=== PATIENT | female | born 1955 | race Caucasian/White ===

== ENCOUNTER 2020-11-25 14:03 | Outpatient (CLI) | payer OTHER, SELFPAY | END 2020-11-25 14:04 | disposition home or self-care (01) | LOC: ANHCOVIDVC 14:03 | PROVIDERS: PCP Orthopaedic Surgery | DX: Z23 Encounter for immunization (principal) | CPT/HCPCS: 0001A; 91300 ==

== ENCOUNTER 2020-12-16 14:06 | Outpatient (CLI) | payer OTHER, SELFPAY | END 2020-12-16 14:07 | disposition home or self-care (01) | LOC: ANHCOVIDVC 14:07 | PROVIDERS: PCP Orthopaedic Surgery | DX: Z23 Encounter for immunization (principal) | CPT/HCPCS: 0002A; 91300 ==

== ENCOUNTER 2024-01-31 14:45 | Outpatient (RCR) | payer MEDICARE, OTHER, SELFPAY ==
--- NOTE | 2024-01-07 14:33 | OPREHPOC ---
Outpatient Therapy Plan of Care This is a Multidisciplinary Plan of Care that may contain components documented by all disciplines (PT, OT, and ST.) PT Problem 1 PT Problem #1 Knowledge Deficit PT Goal 1 Goal *indep with HEP--land and aquatic Target Visit 6 PT Problem 2 PT Problem #2 Pain PT Goal 1 Goal 1* pt report pain R knee at worst of 6/10 2* self assessment with LE functional scale rating of 50% limitation in activity Target Visit 6 PT Problem 3 PT Problem #3 Impaired Strength PT Goal 1 Goal increase srength of R hip/knee to improve mobility and support to knee joint: 1* pt perform 20 reps of mat strengthening exercises 2* 2 minute walking test distance of 450' Target Visit 6
--- NOTE | 2024-01-07 14:33 | PTOPEVAL1 ---
Assessment and note entered by Porsche Hernandez, PT Evaluation Information Assessment Status Evaluation Diagnosis R knee pain Onset Jun 2023 Subjective Information gradual increase in pain, no trauma or injury to R LE; also have pain in L knee; to have xrays and more testing on knees next week; No PT in the past for legs; have never done aquatic therapy; no falls in the past 6 months, do have a history of falls; do not use assistive device; is trying to lose some weight, have had a gradual increase in her weight over the past 10 years and extra weight bothering her body more. Activity: indep with home and self care tasks, have to pace herself--do some then rest; one entry step at home; GOAL: figure out what is wrong with her knees; get stronger and see if that helps her knees. Reported Pain Level Pain Score Self Report Additional Pain Score Comments pain range in the past week: 7-8/10; sore and hurts over lateral and distal patellar areas; back of knee throbs constantly; also have pain in L knee, both hips and back; increase pain: work in yard, bending down decrease pain: sit/rest, ice problems getting comfortable with sleeping, usually sleep on her side--educated on use of pillow between knees and ankles for knee alignment reported walking tolerance 5-10 minutes Assessment PT Clinical Summary Evy has the diagnosis of R knee pain. She reports chronic issues with pain all over her body. And has not had any recent falls or trauma to LE's. She lives alone and assists with care of her young grandchildren. She does not do any fitness or exercises, stated gotten weaker from not doing very much. With the evaluation: she has good flexibility of her hips and knees, weakness of hips and knees; lateral placement and tracking of her patella; 2 minute walking test distance of 385' with increase pain in L hip;
--- NOTE | 2024-01-14 07:12 | PCPTNOTE ---
Patient called to cancell, gave no reason.
--- NOTE | 2024-01-24 15:22 | PCPTNOTE ---
Pt LESLIE beltrana visit today. LM on her phone of next visit date and time.
--- NOTE | 2024-01-28 14:27 | PCPTNOTE ---
No call No show, reason unknown. AKArslan
--- NOTE | 2024-01-31 15:19 | PCPTNOTE ---
Pt no showed for the third visit today. Left message infoming pt she will be discharged after today last no show.
--- NOTE | 2024-02-02 08:37 | PTOPDC ---
Assessment and note entered by Porsche Hernandez, PT Discharge Report Assessment Status Discharge - Pt Not Present Diagnosis R knee pain Onset Jun 2023 Subjective Information pt was not seen this date Assessment PT Clinical Summary Evy had the PT evaluation on January 06. She called /canceled 1 and did not show for 3 appointments. Discharge PT. The goals were not addressed. Plan of Care PT Services Indicated No
== END 2024-02-02 10:47 | disposition home or self-care (01) ==
LOC: ANHPT 14:45
PROVIDERS: PCP Orthopaedic Surgery; Visit Provider Family Medicine
DX: M25.561 Pain in right knee (principal)
CPT/HCPCS: 97110; 97161; 97530

== ENCOUNTER 2024-12-14 10:00 | Outpatient (CLI) | payer MEDICARE, OTHER, SELFPAY ==
--- OUTSIDE RECORDS SUMMARY | 2024-12-14 10:48 | XMS_ITS | Referral Summary ---
Author Organization [facility] Address [address] [place] [id number] Care Team Providers Care Oil Rig Roughneck Name Role Phone Silvio Kovacs MD Primary Care Provider [phone] Encounters Date Type Department Care Team Description 09/21/2024 6:31 PM [employer] - 09/21/2024 11:59 PM [employer] Hospital Encounter [address] [address] Exposure to COVID-19 virus Discharge Disposition: Discharge to home or self care 09/21/2024 6:15 PM [employer] Office Visit [facility] at [address] [address] Petra Saldana NP Non-recurrent acute serous otitis media, unspecified laterality (Primary Dx); Exposure to COVID-19 virus from Last 3 Months Allergies No known active allergies Medications fluticasone propionate (FLONASE) 50 mcg/actuation nasal spray Administer 1 spray into each nostril as needed for allergies 12/22/19 20 Active albuterol HFA (PROVENTIL HFA,VENTOLIN HFA,PROAIR HFA) 90 mcg/actuation inhalerIndications :Acute Asthma Attack Inhale 1 puff 3 (three) times a day 09/30/19 19 Active cyanocobalamin (Vitamin B-12) 100 mcg tabletIndications: Prevention of Vitamin B12 Deficiency Take 1 tablet (100 mcg total) by mouth every morning Crush medications for 1 week after surgery 12/31/19 Active Additional Information Patient not taking.Reported on 09/21/2024 hydrOXYzine (ATARAX) 25 mg tabletIndications: anxiety Take 1 tablet (25 mg total) by mouth every 4 (four) hours as needed for itching Crush medications for 1 week after surgery 12/31/19 Active omeprazole (PriLOSEC) 20 mg capsuleIndications :Treatment of Non-Bleeding Gastric Disorder Take 1 capsule (20 mg total) by mouth every morning For 1 week after surgery open capsule sprinkle in applesauce take immediately after 1 week take pill whole 12/31/19 Active Additional Information Patient not taking.Reported on 09/21/2024 pravastatin (PRAVACHOL) 20 mg tabletIndications: hyperlipidemia Take 1 tablet (20 mg total) by mouth nightly Crush medications for 1 week after surgery 12/31/19 Active sertraline (ZOLOFT) 50 mg tabletIndications: depression Take 2 tablets (100 mg total) by mouth every morning Crush medications for 1 week after surgery 12/31/19 Active coenzyme Q10 10 mg capsuleIndications :supplement Take 1 capsule (10 mg total) by mouth nightly Restart in 1 week after surgery 01/07/20 Active Additional Information Patient not taking.Reported on 09/21/2024 acetaminophen (TYLENOL) 32 mg/mLIndications:P ain Take 20.3 mL (650 mg total) by mouth every 6 (six) hours as needed for pain 473 mL 01/01/20 Active polyethylene glycol (MIRALAX) 17 gram packetIndications: constipation Take 1 packet (17 g total) by mouth daily 10 packet 01/02/20 Active Additional Information Patient not taking.Reported on 09/21/2024 ondansetron ODT (ZOFRAN-ODT) 4 mg disintegrating tabletIndications: Prevention of Post-Operative Nausea and Vomiting Take 1 tablet (4 mg total) by mouth every 8 (eight) hours as needed for nausea or vomiting 20 tablet 2 01/01/20 Active Additional Information Patient not taking.Reported on 09/21/2024 lisinopril-hydroCH LOROthiazide (ZESTORETIC) 20-12.5 mg per tabletIndications: hypertension Take 1 tablet by mouth every morning Crush medications for 1 week after surgery 01/01/20 Active oxyCODONE (ROXICODONE) solution 5 mg/5 mLIndications:Pain Take 5 mL (5 mg total) by mouth every 4 (four) hours as needed for pain 70 mL 01/01/20 Active Additional Information Patient not taking.Reported on 09/21/2024 Active Problems Problem Noted Date Diagnosed Date 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 Never 12/02/2021 Average Number of Drinks Not on file 022 Q3: How often do you have si x or more drinks on one occasion? Never 12/02/2021 Comments No Sex and Gender Information Value Date Recorded Sex Assigned at Not on file Legal Sex Female 8:51 PM [employer] Gender Identity Female 12/01/2021 1:16 PM CDT Sexual Orientation Not on file Last Filed Vital Signs Vital Sign Reading Time Taken Comments Blood Pressure 124/70 09/21/2024 5:57 PM [employer] Pulse 90 09/21/2024 5:57 PM [employer] Temperature 36.6 C (97.9 F) 09/21/2024 5:57 PM [employer] Respiratory Rate 24 09/21/2024 5:57 PM [employer] Oxygen Saturation 98% 09/21/2024 5:57 PM [employer] Inhaled Oxygen Concentration - - Weight 75.3 kg (166 lb) 09/21/2024 5:57 PM [employer] Height 160 cm (5' 3 ) 01/23/2022 2:26 PM CDT Body Mass Index 29.41 01/23/2022 2:26 PM CDT Plan of Treatment Not on file Medical Devices Implanted Type Area Stemming Machine Operator Device Identifier Shelf Expiration Date Model / Serial / Lot [employer]A 10x7cm Reinforcement Tissue Mesh Surgical Synthetic [id number] - [id number] - [id number] Implanted:Qty: 1 on 12/29/2021 by Laurent Barboza MD at [facility] Mesh N/A: Abdomen [employer] [id number] 09/15/2024 [id number] / [id number] / Procedures Procedure Name Priority Date/Time Associated Diagnosis Comments INFLUENZA A/B, RSV, AND COVID-19 PCR Routine 09/21/2024 6:31 PM [employer] Exposure to COVID-19 virus POC INFLUENZA A/B, COVID-19 ANTIGEN Routine 09/21/2024 6:09 PM [employer] Exposure to COVID-19 virus from Last 3 Months Results * Influenza A/B, RSV, and COVID-19 PCR Nasopharyngeal (09/21/2024 6:31 PM PA[employer]) Pathologist [facility] COVID-19 RNA Negative Negative Influenza A RNA Negative Negative [facility] Influenza B RNA Negative Negative [facility] RSV RNA Negative Negative [facility] Comment: Interpretive data: Testing performed by [facility]. This test is performed using the [employer] Xpert Xpress CoV-2/Flu/RSV plus assay. This is a multiplex, real-time reverse transcriptase PCR assay intended for the qualitative detection of nucleic acid from SARS-CoV-2, influenza A, influenza B, and respiratory syncytial virus. This assay has been cleared by the [place] Food and Drug administration. The performance characteristics have been verified by the [facility]. Results must be considered in the clinical context, and a negative result does not rule out infection. Interpretive Data last revised 2023 Nasopharyngeal 09/21/2024 6: 31 PM [employer] 09/21/2024 10:15 PM [employer] Narrative [facility] - 09/21/2024 11:23 PM [employer] Is the Patient experiencing symptoms consistent with COVID?->Yes Reason for testing?->Symptomatic Is the patient experiencing any symptoms consistent with COVID (eg. Fever, cough, shortness of breath)?->Yes Petra Saldana NP LAB MICROBIOLOGY - GENERAL ORDERABLES Final Result [facility] [address] Department [place] [address] * POC Influenza A/B, COVID-19 antigen (09/21/2024 6:09 PM [employer]) Influenza A Ag, POC Negative Negative [facility] Influenza B Ag, POC Negative Negative [facility] COVID-19 Ag POC Presumptive Negative Presumptive Negative, Invalid [facility] Nasopharyngeal 09/21/2024 6: 09 PM [employer] Petra Saldana NP POINT OF CARE TEST ORDERAB LES Final Result [facility] [address] [place] [address], [facility] from Last 3 Months Insurance MEDICARE [facility] [place] [address] MEDICARE [employer] MEDICARE [employer] Advance Directives For more information, please contact: [phone] * Full Code (Latest Code Status on File) Date Activated Date Inactivated Comments 12/29/2021 2:05 PM 12/31/2021 9:45 PM Care Teams Oil [employer] Roughneck Relationship Specialty Start Date End Date Silvio Kovacs MD [address] [place] [address] PCP - General Software Developer Consultant 09/21/24
--- OUTSIDE RECORDS SUMMARY | 2024-12-14 10:48 | XMS_ITS | Clinical Summary ---
Author Organization [facility] Address [address] [place] [address] Care Team Providers Care Teacher Of The Deaf Name Role Phone Silvio Kovacs MD Primary Care Provider [phone] Allergies No known active allergies Medications fluticasone [...] medications for 1 week after surgery 12/31/19 22 Active Additional Information Patient not taking.Reported on 09/21/2024 hydrOXYzine (ATARAX) 25 mg tabletIndications: anxiety Take 1 tablet (25 mg total) by mouth every 4 (four) hours as needed for itching Crush medications for 1 week after surgery 12/31/19 22 Active omeprazole (PriLOSEC) 20 mg capsuleIndications :Treatment of Non-Bleeding Gastric Disorder Take 1 capsule (20 mg total) by mouth every morning For 1 week after surgery open capsule sprinkle in applesauce take immediately after 1 week take pill whole 12/31/19 22 Active Additional Information Patient not taking.Reported on [...] (10/24/2021): Added automatically from request for surgery [id number] Acute bronchitis 10/13/2021 Essential hypertension 01/18/2017 Mixed anxiety and depressive disorder 08/15/2016 Encounters Date Type Department Care Team Description 09/21/2024 6:31 PM EEG TECH - 09/21/2024 11:59 PM EEG TECH Hospital Encounter [address] [address] Exposure to COVID-19 virus Discharge Disposition: Discharge to home or self care 09/21/2024 6:15 PM EEG TECH Office Visit [facility] Medical [facility] at [address] [address] Petra Saldana NP Non-recurrent acute serous otitis media, unspecified laterality (Primary Dx); Exposure to COVID-19 virus from Last 3 Months Surgical History Surgery Date Site/Laterality Comments SECTION HYSTERECTOMY WRIST FRACTURE SURGERY Medical History Medical History Date Comments Hiatal hernia GERD (gastroesophageal reflux disease) HTN (hypertension) Anxiety Depression High cholesterol Social History Tobacco Use Types Packs/Day Years [...] on file Legal Sex Female 8:51 PM EEG TECH Gender Identity Female 12/01/2021 1:16 PM CDT Sexual Orientation Not on file Obstetrics History Last Filed Vital Signs Vital Sign Reading Time Taken Comments Blood Pressure 124/70 09/21/2024 5:57 PM EEG TECH Pulse 90 09/21/2024 5:57 PM EEG TECH Temperature 36.6 C (97.9 F) 09/21/2024 5:57 PM EEG TECH Respiratory Rate 24 09/21/2024 5:57 PM EEG TECH Oxygen Saturation 98% 09/21/2024 5:57 PM EEG TECH Inhaled Oxygen Concentration - - Weight 75.3 kg (166 lb) 09/21/2024 5:57 PM EEG TECH Height 160 cm (5' 3 ) 01/23/2022 2:26 PM CDT Body Mass Index 29.41 01/23/2022 2:26 PM CDT Plan of Treatment Health Maintenance Due Date Last Done Comments Colon Cancer Screening-Colonoscopy 1955 Depression Screening 1955 Hepatitis C Screening 1956 Hepatitis B Screening 1974 Zoster Vaccine (1 of 2) 2006 Pneumococcal vaccine 65+ (2 of 2 - PCV) 06/06/2016 06/06/2015 Well Visit 65+ 2021 Fall Risk Assessment 12/31/2022 12/31/2021 Breast Cancer Screening-Mammogram 08/05/2023 08/05/2022, 08/05/2022, 06/17/2018 DTaP/Tdap/Td Vaccine (2 - Td or Tdap) 12/23/2023 12/22/2013 Covid-19 Vaccine (4 - 2023-2 5 season) 2024 07/08/2021, 12/16/2020, 11/25/2020 Influenza Vaccine (#1) 2024 , 05/03/2020, 09/12/2019, Additional history exists Osteoporosis Screening-Bone Density Scan 08/05/2024 08/05/2022 Medical Devices Implanted Type Area Composing Room Machinist Device Identifier Shelf Expiration Date Model / Serial / Lot [employer] Bio-A 10x7cm Reinforcement Tissue Mesh Surgical Synthetic [id number] - [id number] - [id number] Implanted:Qty: 1 on 12/29/2021 by Laurent Barboza MD at [facility] Mesh N/A: Abdomen [employer] [id number] 09/15/2024 [id number] / [id number] / Procedures Procedure Name Priority Date/Time Associated Diagnosis Comments INFLUENZA A/B, RSV, AND COVID-19 PCR Routine 09/21/2024 6:31 PM EEG TECH Exposure to COVID-19 virus POC INFLUENZA A/B, COVID-19 ANTIGEN Routine 09/21/2024 6:09 PM EEG TECH Exposure to COVID-19 virus from Last 3 Months Results * Influenza A/B, RSV, and COVID-19 PCR Nasopharyngeal (09/21/2024 6:31 PM EEG TECH) COVID-19 RNA Negative Negative [facility] Influenza A RNA Negative Negative [facility] Influenza B RNA Negative Negative [facility] RSV RNA Negative Negative [facility] Comment: Interpretive data: Testing performed by [facility]. This test is performed using the [employer] Xpert Xpress CoV-2/Flu/RSV plus assay. This is a multiplex, real-time reverse transcriptase PCR assay intended for the qualitative detection of nucleic acid from SARS-CoV-2, influenza A, influenza B, and respiratory syncytial virus. This assay has been cleared by the [place] Food and Drug administration. The performance characteristics have been verified by the [facility]. Results must be considered in the clinical context, and a negative result does not rule out infection. Interpretive Data last revised 2023 Nasopharyngeal 09/21/2024 6: 31 PM EEG TECH 09/21/2024 10:15 PM EEG TECH Narrative [facility] - 09/21/2024 11:23 PM EEG TECH Is the Patient experiencing symptoms consistent with COVID?->Yes Reason for testing?->Symptomatic Is the patient experiencing any symptoms consistent with COVID (eg. Fever, cough, shortness of breath)?->Yes Petra Saldana NP LAB MICROBIOLOGY - GENERAL ORDERABLES Final Result Performing Organization Address [facility] Co de Phone Number [facility] [address] Department [place] [address] [facility] * POC Influenza A/B, COVID-19 antigen (09/21/2024 6:09 PM EEG TECH) Influenza A Ag, POC Negative Negative [facility] Influenza B Ag, POC Negative Negative [facility] COVID-19 Ag POC Presumptive Negative Presumptive Negative, Invalid [facility] Nasopharyngeal 09/21/2024 6: 09 PM EEG TECH Petra Saldana PHARMACY DIRECTOR POINT OF CARE TEST ORDERAB LES Final Result Performing Organization Address [facility] Co de Phone Number [facility] [address] [place] [address], [facility] from Last 3 Months Insurance [place] [address] [place] [address] MEDICARE [facility] [address] Advance Directives For more information, please contact: [phone] * Full Code (Latest Code Status on File) Date Activated Date Inactivated Comments 12/29/2021 2:05 PM 12/31/2021 9:45 PM Care Teams Teacher Of The Deaf Relationship Specialty Start Date End Date Silvio Kovacs MD [address] [place] [address] PCP - General Wrecking Car Driver 09/21/24
--- OUTSIDE RECORDS SUMMARY | 2024-12-14 10:49 | XMS_ITS | Clinical Summary ---
Author Organization [facility] Address [address] [place] [address] Care Team Providers Care Certified Marine Mechanic Name Role Phone Genaro Theodore Primary Care Provider [phone] Allergies No known active allergies Medications hydrOXYzine 25 MG capsule Take 25 mg by mouth 4 (four) times daily as needed. Active lisinopril-hydro CHLOROthiazide 20-25 MG tablet Take 1 tablet by mouth daily. Active sertraline 50 MG tablet Take 50 mg by mouth daily. Active omeprazole 20 MG capsule Take 20 mg by mouth daily. Active sucralfate 1 GM/10ML suspension Take 1 g by mouth 4 (four) times daily. Active Active Problems No known active problems Social History Tobacco Use Types Packs/Day Years Used Date Smoking Tobacco: Every Day Electronic Cigarettes Smokeless Tobacco: Never Comments: 0.5 mg tank Q2 day s Alcohol Use Standard Drinks/Week Comments Never 0 (1 standard drink = 0.6 oz pur e alcohol) AUDIT-C Answer Date Recorded Q1: How often do you have a drink containing alc ohol? Never 09/13/2020 Average Number of Drinks Not on file 021 Frequency of Binge Drinking Not on file 08/17 Comments No Sex and Gender Information Value Date Recorded Sex Assigned at Female 09/12/2024 3:11 PM ANIMATION ARTIST Legal Sex Female 8:25 PM CDT Gender Identity Not on file Sexual Orientation Not on file Last Filed Vital Signs Vital Sign Reading Time Taken Comments Blood Pressure 138/70 09/16/2020 5:30 PM ANIMATION ARTIST Pulse 62 09/16/2020 5:30 PM ANIMATION ARTIST Temperature 36 C (96.8 F) 09/16/2020 4:40 PM ANIMATION ARTIST Respiratory Rate 15 09/16/2020 5:30 PM ANIMATION ARTIST Oxygen Saturation 99% 09/16/2020 5:30 PM ANIMATION ARTIST Inhaled Oxygen Concentration - - Weight 76.7 kg (169 lb) 09/11/2020 10:06 AM ANIMATION ARTIST Height 162.6 cm (5' 4 ) 09/11/2020 10:06 AM ANIMATION ARTIST Body Mass Index 29.01 09/11/2020 10:06 AM ANIMATION ARTIST Plan of Treatment Health Maintenance Due Date Last Done Comments Hepatitis C 1974 Zoster Vaccines (1 of 2) 2006 Annual Medicare Wellness Visit 2021 DTaP, Tdap and Td Vaccines ( 2 - Td or Tdap) 12/23/2023 12/22/2013 COVID-19 Vaccine (4 - 2023-2 5 season) 2024 07/08/2021, 12/16/2020, 11/25/2020 Mammogram Screening 08/05/2024 08/05/2022, 06/17/2018 PHQ-2 (Physician [place]) 08/16/2024 Colorectal Cancer Screening Colonoscopy (10 Years) 09/16/2030 09/16/2020, 09/16/2020 RSV Immunization or 60+ Years (1 - 1-dose 75+ series) 2031 Pneumococcal Vaccine: 50+ Years Completed 06/08/2022, 06/06/2015 Dexa Scan (General) Completed 08/05/2022 Meningococcal B Vaccine Aged Out No l onger eligible based on patient's age to complete this topic Meningococcal Vaccine Aged Out No moisés richard eligible based on patient's age to complete this topic RSV Immunizations Under 20 Months Aged Out No longer eligible b ased on patient's age to complete this topic Medical Devices Implanted Type Area Director [employer] Device Identifier Shelf Expiration Date Model / Serial / Lot Other Description:Patient unsure i f she has any hardware to left wrist Procedures Procedure Name Priority Date/Time Associated Diagnosis Comments BONE DENSITY/DEXA Routine 08/05/2022 1:2 3 PM ANIMATION ARTIST Encounter for screening for osteoporosis MG SCREENING W MALINDA CALISTA DIGI Routine 08/05/2022 12:48 PM ANIMATION ARTIST Encounter for screening mammogram for malignant neoplasm of breast COLONOSCOPY Routine 09/16/2020 3:53 PM ANIMATION ARTIST from Last 3 Months or Most Recently Relevant to Health Maintenance Results * BONE DENSITY/DEXA (08/05/2022 1:23 PM ANIMATION ARTIST) Anatomical Region Laterality Modality Bone Mammography 08/05/2022 2:14 PM ANIMATION ARTIST Impressions 08/05/2022 2:15 PM ANIMATION ARTIST IMPRESSION: WHO Classification: Osteoporosis RECOMMENDATIONS: All patients should ensure an adequate intake of dietary calcium and vitamin D. The NOF recommend adults under the age of 50 need 1000 mg of calcium and 400-800 IU of vitamin D daily. Effective therapy for the prevention and treatment of osteoporosis include bisphosphonates. Follow-up: People with diagnosed cases of osteoporosis or at high risk for fracture should have regular bone mineral density test. For patients eligible for Medicare, routine testing is allowed once every 2 years. Testing frequency can be increased to one year for patients who have rapidly progressing disease, those who are receiving or discontinuing medical therapy to restore bone mass, or have additional risk factors. Referred By: GENARO THEODORE Interpreted By: Kennedy Mishra MD, 08/05/2022 2:14 PM Narrative 08/05/2022 2:15 PM ANIMATION ARTIST EXAMINATION: BONE DENSITY/DEXA INDICATIONS: screening for osteoporosis COMPARISON: None TECHNIQUE: DEXA bone minimal density evaluation was performed in the AP projection over the lumbar spine and over both hips in the AP projection utilizing standard imaging techniques. ASSESSMENT: The BMD measured at the AP spine L1-L4 is 0.741 g/cm? with a T-score of -2.8. The BMD measured at the left femoral neck is 0.655 g/cm? with a T-score of -1.7. The BMD measured at the left hip is 0.806 g/cm? with a T-score of -1.1. The BMD measured at the right femoral neck is 0.644 g/cm? with a T-score of - 1.8. The BMD measured at the right hip is 0.838 g/cm? with a T-score of -0.9. FRAX 10-year fracture risk: Major Osteoporotic Fracture: 17% Hip Fracture: 3.7% Procedure Note Kennedy Mishra MD - 08/05/2022 EXAMINATION: BONE DENSITY/DEXA INDICATIONS: screening for osteoporosis COMPARISON: None TECHNIQUE: DEXA bone minimal density evaluation was performed in the APprojection over the lumbar spine and over both hips in the AP projectionutilizing standard imaging techniques. ASSESSMENT: The BMD measured at the AP spine L1-L4 is 0.741 g/cm? with a T-score of-2.8. The BMD measured at the left femoral neck is 0.655 g/cm? with a T-score of-1.7. The BMD measured at the left hip is 0.806 g/cm? with a T-score of -1.1. The BMD measured at the right femoral neck is 0.644 g/cm? with a T-scoreof -1.8. The BMD measured at the right hip is 0.838 g/cm? with a T-score of -0.9. FRAX 10-year fracture risk: Major Osteoporotic Fracture: 17% Hip Fracture: 3.7% IMPRESSION: WHO Classification: Osteoporosis RECOMMENDATIONS: All patients should ensure an adequate intake of dietary calcium andvitamin D. The NOF recommend adults under the age of 50 need 1000 mg ofcalcium and 400-800 IU of vitamin D daily. Effective therapy for theprevention and treatment of osteoporosis include bisphosphonates. Follow-up: People with diagnosed cases of osteoporosis or at high risk for fractureshould have regular bone mineral density test. For patients eligible forMedicare, routine testing is allowed once every 2 years. Testing frequencycan be increased to one year for patients who have rapidly progressingdisease, those who are receiving or discontinuing medical therapy torestore bone mass, or have additional risk factors. Referred By: GENARO THEODORE Interpreted By: Kennedy Mishra MD, 08/05/2022 2:14 PM us Genaro Theodore DO DEXA Final Result * MG SCREENING W MALINDA CALISTA IVYI (08/05/2022 12:48 PM ANIMATION ARTIST) Anatomical Region Laterality Modality Breast Bilateral Mammography 08/05/2022 4:40 PM ANIMATION ARTIST Narrative 08/05/2022 4:41 PM ANIMATION ARTIST Examination: Digital screening mammogram with CAD. Clinical history: Asymptomatic patient presents for routine screening. Comparison: 06/17/2018. Technique: Bilateral digital mammograms. The exam was interpreted with the use of a computer-aided detection (CAD) system. Additional 3-D tomosynthesis images were acquired. Tissue density: The breast tissue contains scattered fibroglandular densities. Findings: The breast tissue contains scattered fibroglandular densities. Benign-appearing calcification noted. No suspicious mass, microcalcification or area of architectural distortion can be identified. From a mammographic standpoint, routine followup in one year would seem adequate. IMPRESSION: No suspicious change since 06/17/2018. Recommendation: 1: Routine Screening Bilateral in 1 Year Assessment: ACR BI-RADS 2 - BENIGN FINDING(S) Ordered By: GENARO THEODORE Interpreted By: Jamie Chavez MD, 08/05/2022 4:40 PM us Genaro Theodore DO MAMMO Final Result * Colonoscopy (09/16/2020 3:53 PM ANIMATION ARTIST) Narrative Malia Neal MD - 09/16/2020 3:53 PM ANIMATION ARTIST Malia Neal MD 09/19/2020 7:14 AM MALIA NEAL MD, FACG, FACP COLONOSCOPY and EGD EGD INDICATION: GERD and dysphagia. POST-OP: 8 cm hiatal hernia. Esophageal dilation done. SEDATION: Per Anesthesia With the patient in the left lateral decubitus position, the Olympus [id number] endoscope was used to easily intubate the esophagus and advanced to the third duodenum. Careful inspection of the mucosa was made upon insertion and withdrawal of the endoscope with retroflexion in the stomach. Findings: Esophagus: SC Jx @ 32 cm. The esophagus is normal. No esophagitis, stricture, mass or Carcamo s . Stomach: 8 cm hiatal hernia. Fundus, body and antrum are otherwise normal. No ulceration, erosion, inflammation, AVM or malignancy. Duodenum: Normal in the bulb, second and third duodenum. Esophageal dilation: 60 Fr. Cummins dilator was passed easily x 1 without heme or resistance. COLONOSCOPY INDICATION: Screening for colon cancer. POST-OP: Mild diverticulosis. PREP: Good. With the patient in the left lateral decubitus position, the Olympus [id number] colonoscope was introduced into the rectum and advanced easily to the Terminal Ileum. Careful inspection of the mucosa was made upon insertion and withdrawal of the endoscope. FINDINGS: Terminal ileum: distal 5 cm normal. Cecum, ascending colon, transverse colon and rectum including retroflexion normal. Descending and sigmoid colon: mild diverticulosis. No masses, polyps, AVMs or colitis seen. No complications, blood loss or implants. ASSESSMENT AND PLAN: A. GERD: - Stable on meds; continue - No esophagitis or Carcamo s B. Dysphagia: - Likely due to ring not seen on endoscopy - Dilation done C. 8 cm hiatal hernia: observe. D. Mild diverticulosis: observe. E. Unremarkable colonoscopy: screening colonoscopy in ten years. Thank you for allowing me to care for your patient. She will follow-up with my office in one month. Malia Neal M.D. Malia Neal MD GI PROCEDURE ORDERABLES Fin al Result from Last 3 Months or Most Recently Relevant to Health Maintenance Insurance MEDICARE Care Teams Certified Marine Mechanic Relationship Specialty Start Date End Date Genaro Theodore DO PCP - General FAMILY PRACTICE 04/29/21
--- OUTSIDE RECORDS SUMMARY | 2024-12-14 10:49 | XMS_ITS | Encounter Summary ---
Author Organization [facility] Address [address] [place] [address] Care Team Providers Care Millinery Teacher Name Role Phone Anastasia Min Junie DO Primary Care Provider [phone] Genaro Theodore DO Primary Care Provider [phone] Encounter Details Date Type Department Care Team (Late st Contact Info) Description 09/13/2020 Prep for Procedure [facility] [address] [place], [place] [id number] Kirk Neal MD [address] [id number] Social History Tobacco Use Types Packs/Day Years [...] Sex Assigned at Female 09/12/2024 3:11 PM POURING CRANE OPERATOR Legal Sex Female 8:25 PM CDT Gender Identity Not on file Sexual Orientation Not on file COVID-19 Exposure Response Date Recorded In the last month, have you been in contact with someone who was confirmed or suspected to have Coronavirus / COVID-19? No / Unsure 09/16/2020 1:29 PM POURING CRANE OPERATOR documented as of this encounter Functional Status documented as of this encounter Plan of Treatment Not on file documented as of this encounter Results * PRE-SURGICAL/PRE-PROCEDURE CORONAVIRUS (COVID 19) (09/13/2020 10:50 AM POURING CRANE OPERATOR) CORONAVIRUS SARS COV 2 PCR (RESP) NOT DETECTED NOT DETECTED 09/14/2020 2:26 PM POURING CRANE OPERATOR [facility] Comment: A Not Detected (negative) test result for this test means that SARS- CoV-2 RNA was not present in the specimen above the limit of detection. A negative result does not rule out the possibility of COVID-19 and should not be used as the sole basis for treatment or patient management decisions. If COVID-19 is still suspected, based on exposure history together with other clinical findings, re-testing should be considered in consultation with public health authorities. Laboratory test results should always be considered in the context of clinical observations and epidemiological data in making a final diagnosis and patient management decisions. Please review the Fact Sheets and FDA authorized labeling available for health care providers and patients using the following websites: https://[email or web address]/home/Covid-19/HCP/NAAT/fact-sheet2 https://www.[employer]/home/Covid-19/Patients/NAAT/ fact-sheet2 This test has been authorized by the FDA under an Emergency Use Authorization (EUA) for use by authorized laboratories. Due to the current public health emergency, [facility] is receiving a high volume of samples from a wide variety of swabs and media for COVID-19 testing. In order to serve patients during this public health crisis, samples from appropriate clinical sources are being tested. Negative test results derived from specimens received in non-commercially manufactured viral collection and transport media, or in media and sample collection kits not yet authorized by FDA for COVID-19 testing should be cautiously evaluated and the patient potentially subjected to extra precautions such as additional clinical monitoring, including collection of an additional specimen. Methodology: Nucleic Acid Amplification Test (NAAT) includes RT-PCR or TMA Additional information about COVID-19 can be found at the [facility] website: www.[employer]/Covid19. Test performed at [facility] [address] [facility] [address] Director: CLARITZA GARCIA DO,MPH FIRST TEST NO 09/13/2020 10:52 AM POURING CRANE OPERATOR [facility] EMPLOYED IN HEALTHCARE NO 09/13/2020 10:52 AM POURING CRANE OPERATOR [facility] SYMPTOMATIC DEFINED BY CDC NO 09/13/2020 10:52 AM POURING CRANE OPERATOR [facility] DATE OF SYMPTOM ONSET UNKNOWN 09/13/2020 1:11 PM [facility] HOSPITALIZATION STATUS NO 09/13/2020 10:52 AM [facility] PATIENT IN ICU NO 09/13/2020 10:52 AM [facility] RESIDENT OF [facility] NO 09/13/2020 10:52 AM [facility] UNKNOWN 09/13/2020 1:11 PM [facility] PATIENT'S RACE WHITE OR 09/13/2020 10:52 AM [facility] ETHNICITY NONHISPANIC 09/13/2020 10:52 AM [facility] SOURCE (QST) NASOPHARYNGEAL SWAB 09/13/2020 10:52 AM [facility] NASOPHARYNGEAL SWAB / Unknown 09/13/2020 10:50 AM POURING CRANE OPERATOR us Kirk Neal MD MICROBIOLOGY - GENERAL ALON ERAZO Final Result [facility] [address] [place] [address], [facility] [address] [place] [address], documented in this encounter Visit Diagnoses Diagnosis GERD (gastroesophageal reflux disease)- Primary Esophageal reflux documented in this encounter Additional Health Concerns Infection Onset Date Last Indicated Resolved Time COVID-19 Rule Out 09/13/2020 09/13/2020 09/14/2020 2:27 PM POURING CRANE OPERATOR documented as of this encounter Care Teams Millinery Teacher Relationship Specialty Start Date End Date Anastasia Min DO [facility] [address] [place] [phone] PCP - General FAMILY PRACTICE 09/30/18 04/28/21 Genaro Theodore DO 3 [facility] [address] [place] [phone] PCP - General FAMILY PRACTICE 04/29/21 documented as of this encounter
--- OUTSIDE RECORDS SUMMARY | 2024-12-14 10:49 | XMS_ITS | Clinical Summary ---
Author Organization [facility] Address [address] [place] [address] Care Team Providers Care Cutting And Splicing Supervisor Name Role Phone Ryan Erickson MD Primary Care Provider [phone] Source Comments [facility],non-owned Affiliates and Associated Physician Practices is amultiple site organization consisting of ambulatory clinics and hospital sitesin [place], [place], [place] and [place]. This disclosure is being madepursuant to the Care Everywhere program and may not contain all information available regarding this patient. Last updated 18.[facility] Allergies No known active allergies Medications * Be aware that medications may not be up to date on this document. Alwaysverify current medications with the patient. sertraline (ZOLOFT) 50 MG tablet Take 50 mg by mouth once daily Active hydrOXYzine pamoate (VISTARIL) 25 MG capsule Take 25 mg by mouth 4 times daily as needed Active lisinopril-hydro CHLOROthiazide (PRINZIDE; ZESTORETIC) 20-25 MG tablet Take 1 tablet by mouth once daily Active Family History Medical History Relation Name Comments CAD (Coronary Artery Disease) Father CAD (Coronary Artery Disease) Mother Relation Name Status Comments Father Mother Social History Tobacco Use Types Packs/Day Years Used Date Smoking Tobacco: Former Cigarettes 2013 Smokeless Tobacco: Never Comments No Sex and Gender Information Value Date Recorded Sex Assigned at Not on file Legal Sex Female 10:33 AM CUBE MACHINE TENDER Gender Identity Not on file Sexual Orientation Not on file Last Filed Vital Signs Vital Sign Reading Time Taken Comments Blood Pressure 110/74 07/12/2017 5:40 PM CUBE MACHINE TENDER Pulse 81 07/12/2017 5:40 PM CUBE MACHINE TENDER Temperature 36.8 C (98.2 F) 07/12/2017 5:40 PM CUBE MACHINE TENDER Respiratory Rate 20 07/12/2017 5:40 PM CUBE MACHINE TENDER Oxygen Saturation 98% 07/12/2017 5:40 PM CUBE MACHINE TENDER Inhaled Oxygen Concentration - - Weight 73 kg (161 lb) 07/12/2017 5:40 PM CUBE MACHINE TENDER Height 162.6 cm (5' 4 ) 07/12/2017 5:40 PM CUBE MACHINE TENDER Body Mass Index 27.64 07/12/2017 5:40 PM CUBE MACHINE TENDER Plan of Treatment Health Maintenance Due Date Last Done Comments BONE DENSITY TESTING 1955 COLOGUARD (AGES 45-75) - COL ON CA SCREENING 1956 COLON MONITORING 1956 COLONOSCOPY - COLON CA SCREENING 1956 CT COLONOGRAPHY - COLON CA SCREENING 1955 Colorectal Cancer Screening 1956 FIT - COLON CA SCREENING 1956 FLEX SIG - COLON CA SCREENING 1956 LIPID TESTING 1956 MAMMOGRAM 1956 HEPATITIS C SCREENING 10/04/1974 DTAP/TDAP/TD VACCINES (1 - Tdap) 1975 PNEUMOCOCCAL VACCINE 50+ (1 of 1 - PCV) 2006 ZOSTER VACCINE (1 of 2) 2006 SCREENING FOR DIABETES 07/12/2017 COVID-19 VACCINE (1 - 2023-2 5 season) 2024 DEPRESSION SCREENING 08/16/2024 INFLUENZA VACCINE (Season Ended) 2025 Respiratory Syncytial Virus (RSV) Vaccine Pt: or over 60 yrs (1 - 1-dose 75+ series) 2031 HEPATITIS B VACCINE Aged Out No longe r eligible based on patient's age to complete this topic HIB VACCINE Aged Out No longer eligi ble based on patient's age to complete this topic HPV VACCINE Aged Out No longer eligi ble based on patient's age to complete this topic MENINGOCOCCAL (Group B) VACC INE SHARED DECISION-MAKING Aged Out No longer eligibl e based on patient's age to complete this topic MENINGOCOCCAL GROUPS A/C/Y/W VACCINE Aged Out No longer eligible b ased on patient's age to complete this topic Care Teams Cutting And Splicing Supervisor Relationship Specialty Start Date End Date Ryan Erickson MD [address] [phone] PCP - General Student Resident 07/12/17
--- NOTE | 2024-12-14 10:58 | ECG_ITS ---
Test Date: 2024-12-14 11:14:39 Measurements Intervals [place] Rate: 57 P: 27 MS: 135 QRS: 28 QRSD: 85 T: 9 QT: 412 QTc: 404 Interpretive Statements SINUS BRADYCARDIA WARNING: DATA QUALITY MAY AFFECT INTERPRETATION No previous ECG available for comparison Electronically Signed On 12-15-2024 18:58:09 CDT by Jackson Frost
[2024-12-14 11:37] LABS: Basophils Absolute Auto 0.1 K/mm3 (0.0-0.1); Basophils Percent Auto 1.7 % (0.2-1.2); Eosinophils Absolute Auto 0.3 K/mm3 (0-0.3); Hematocrit 43.4 % (37.0-47.0); Hemoglobin 13.4 g/dL (12.0-15.0); Immature Granulocyte Absolute 0.06 K/mm3 (0.00-0.031); Immature Granulocyte Percent A 0.7 % (0-0.5); Lymphocytes Absolute Auto 2.85 K/mm3 (0.9-3.2); Lymphocytes Percent Auto 34.1 % (18.3-44.2); Mean Corpuscular HGB Conc 30.9 g/dl (32-36); Mean Corpuscular Hemoglobin 27.3 pg (26-34); Mean Corpuscular Volume 88.4 fl (80-100); Mean Platelet Volume 10.2 fl (7.4-10.4); Monocytes Absolute Auto 0.9 K/mm3 (0.1-0.6); Monocytes Percent Auto 10.4 % (2.6-8.5); Neutrophils Absolute Auto 4.2 K/mm3 (1.3-6.7); Neutrophils Percent Auto 50.1 % (45.5-73.1); Platelet Count Result 340 k/mm3 (150-375); Red Blood Count 4.91 M/mm3 (4.2-5.4); Red Cell Distribution Width 13.2 % (11.5-14.5); White Blood Count 8.4 K/mm3 (4.5-10.0)
[2024-12-14 11:45] LABS: Urine Cotinine NEGATIVE
[2024-12-14 11:53] LABS: Albumin Level 4.2 g/dL (3.5-5.1); Estimated Glomerular Filt Rate 52; Glucose 92 mg/dL (65-110)
[2024-12-14 12:19] LABS: Hemoglobin A1C 5.6 % (<5.7)
[2024-12-14 13:30] LABS: MRSA (PCR) DETECTED (NOT DETECTE)
== END 2024-12-14 10:01 | disposition home or self-care (01) ==
LOC: ANHSURGERY 10:07
PROVIDERS: Visit Provider Orthopaedic Surgery
DX: M17.11 Unilateral primary osteoarthritis, right knee (principal); Z01.818 Encounter for other preprocedural examination
CPT/HCPCS: 80307; 82040; 82565; 82947; 83036; 85025; 86850; 86900; 86901; 87641; 93005

== ENCOUNTER 2024-12-27 00:40 | Day surgery (SDC) | payer MEDICARE, OTHER, SELFPAY ==
--- NOTE | 2024-12-14 10:01 | PC.NURSE ---
Addendum entered by Tara Parra RN 12/14/24 11:10: HOLD IBUPROFEN 7 DAYS PRE-OP PER DR NUNEZ, LAST DOSE 12/19/24. PT RELAYS UNDERSTANDING. Original Note: Report to the Outpatient Waiting Room, entrance under the green pavilion located off [facility], at time __6:00AM on date ___12/27/24____. Planned Procedure Time: ____7:30AM____. Time changes happen often and if your time is changed the preop area will call you the afternoon before. - You and your visitor will be asked to self-screen and do not enter if you have any COVID symptoms. Please call surgeon if you need to reschedule. - A mask is optional within the hospital at this time. Patients may have clear liquids (water, carbonated beverages, clear teas, apple juice) until 3 hours prior to surgery (4:30AM) with a maximum of 20 ounces. - No food from midnight until time of surgery and no smoking, or chewing tobacco (or any form of nicotine). No chewing gum, candy or mints. Take only the following medications with a SIP of water on the morning of surgery: ___SERTRALINE. MAY TAKE HYDROXYZINE NEEDED DO NOT STOP ANY OF YOUR OTHER PRESCRIPTION MEDICATIONS PRIOR TO SURGERY EXCEPT THE FOLLOWING Hold all vitamins and supplements for 3 days per anesthesiologist. Medications to discontinue per physician ___HOLD IBUPROFEN PER DR NUNEZ Date to take last dose Please no make-up, nail mohawk, hairspray, perfume, deodorant, or body powder the day of surgery. No jewelry (including any body piercings) or valuables the day of surgery, leave them at home. Please take a shower or bath the night before, or the morning of, surgery with an antibacterial soap. Wear comfortable, loose fitting clothing. - Jewelry must be removed prior to entering the operating room. Rings and piercings that are not removed may be cut off. - The hospital will not accept responsibility for valuables. - Please leave all valuables, including medications, at home the day of surgery. If you are going home after surgery, a licensed pickup driver must drive you home. - NO public transportation without another adult if you receive anesthesia. - We recommend that an adult stay with you for 24 hours following discharge. - We also recommend that you do not drive, make important decision, drink alcoholic beverages, or take any drugs that were not prescribed by your health care provider for at least 24 hours after your discharge time. Follow any additional instructions given to you from your surgeon. Telephone instructions given to ____PATIENT and asked if any additional questions and then verbalized understanding. Patient advised to call surgeon office or pre surgery nurse liaison [phone] if any additional questions.
[2024-12-14 10:20] VITALS: BP 109/66; PULSE 73; RESP 16; TEMP 36.3; O2SAT 100
--- NOTE | 2024-12-26 10:47 | P.HP_ITS ---
H&P: HPI History of Present Illness Date/Time: 12/26/24 10:47 Chief Complaint: Patient is knee pain right. She has been unresponsive to conservative treatment at this time. She would like to consider knee replacement surgery she has [id number] arthritis. Review of Systems Musculoskeletal: Musculoskeletal: Reports arthralgias, Reports joint swelling and Reports stiffness Neurologic: Reports abnormal gait [facility] Past Medical History Medical History Hiatal hernia Migraine Anxiety Surgical History Surgical History H/O: section History of surgery on arm H/O: hysterectomy Family History Family History Mother Depression Thyroid disorder Father Acute myocardial infarction Sibling , MVC Accidental overdose Social History Social History Smoking packs per day: 1 Smoking cigarettes per day: 20.0 Years smoked: 35 Smoking pack-years: 35.00 Smoking status: Former smoker Tobacco type: cigarettes Second hand tobacco smoke exposure: No Smoking end date: 02/13/13 Additional smoking assessment comments: VAPES DAILY(WITH LOW NICOTINE VAPE) Alcohol intake: never Substance use: never Substance use type: does not use Do You Feel Safe in your Home?: Yes Lack of Transportation: No Lack of Food: Never True Current Housing: I Do Not Have Housing Concerned About Future Housing: No Difficulty Paying Gas/Electric Bills: No Difficulty Paying for Meds: No Currently Unemployed: No Education: High School Diploma/GED Difficulty w/ Childcare or Family Care: No Living arrangements: alone Occupation/Education: retired 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 Gender identity (if verbalized by the patient): Female Spiritual care concerns: No Meds Home Medications and Allergies Home Medications Medication Instructions Recorded Confirmed Type famotidine 10 mg tablet 10 mg PO DAILY PRN indigestion 11/10/23 12/14/24 History hydroxyzine HCl 25 mg tablet 25 mg PO TID PRN anxiety 11/10/23 12/14/24 History lisinopril 20 mg tablet 20 mg PO DAILY 11/10/23 12/14/24 History pravastatin 20 mg tablet 20 mg PO DAILY 11/10/23 12/14/24 History sertraline 100 mg tablet 100 mg PO DAILY 11/10/23 12/14/24 History trazodone 50 mg tablet 50 mg PO QHS PRN sleep 11/10/23 12/14/24 History fiber 1 tablet PO DAILY 12/14/24 12/14/24 History fluticasone propionate 50 1 - 2 spray intranasal BID PRN 12/14/24 12/14/24 History mcg/actuation nasal nasal congestion spray,suspension (Flonase Allergy Relief) ibuprofen 200 mg tablet (Advil) 400 mg PO Q6H PRN pain 12/14/24 12/14/24 History loratadine 10 mg tablet (Claritin) 10 mg PO DAILY 12/14/24 12/14/24 History Allergies Allergy/AdvReac Type Severity Reaction Status Date / Time No Known Allergies Allergy Verified 12/14/24 10:11 Exam Narrative: On exam she has motion of her right knee from about 3 to 100°. Grinding crepitus and pain with manipulation. Varus deformity. Neurologically she is intact. She walks with an antalgic gait. Eyes: General: appearance normal, both eyes and all related structures Neck: Neck: supple Resp: Effort & Inspection: normal respiratory effort Cardio: Rate: regular rate Rhythm: regular rhythm Assessment and Plan Assessment and plan (1) Osteoarthritis of right knee: Code(s): M17.11 - Unilateral primary osteoarthritis, right knee Status: Acute Assessment and Plan: Patient has severe arthritis right knee. Is essentially [id number]. Conservative treatment is no longer effective for to like to consider right total knee arthroplasty. I discussed risks, benefits, limitations, alternatives with the patient in detail. She would like to proceed. Will proceed per her request discussed.
[2024-12-27] VITALS (14 sets, daily range): BP systolic 112–155; BP diastolic 31–98; PULSE 60–90; RESP 11–18; TEMP 36–36.6; O2SAT 91–99
--- NOTE | ~2024-12-27 | XR_ITS ---
EXAMINATION: [id number] DATE: 12/27/2024 9:48 CDT INDICATION: Right total knee arthroplasty TECHNIQUE: 2 views right knee FINDINGS: There is a right total knee arthroplasty in expected position. Subcutaneous gas with fluid and air in the joint and overlying skin ralph are consistent with recent surgery. No evidence of p eriprosthetic fracture. IMPRESSION: 1. Recent right total knee arthroplasty. Reviewed, dictated and finalized at location A.
--- OUTSIDE RECORDS SUMMARY | 2024-12-27 00:42 | XMS_ITS | Encounter Summary ---
Author Organization [facility] Address [address] [place] [address] Care Team Providers Care Mesh Cutter Name Role Phone Anastasia Min Junie DO Primary Care Provider [phone] Genaro Theodore DO Primary Care Provider [phone] Encounter Details Date Type Department Care Team (Late st Contact Info) Description 09/13/2020 Prep for Procedure [facility] One [facility] [place], [place] [id number] Kirk Neal MD [address] [id number] Social History Tobacco Use Types Packs/Day Years [...] Sex Assigned at Female 09/12/2024 3:11 PM HYDROELECTRIC OPERATOR Legal Sex Female 8:25 PM CDT Gender Identity Not on file Sexual Orientation Not on file COVID-19 Exposure Response Date Recorded In the last month, have you been in contact with someone who was confirmed or suspected to have Coronavirus / COVID-19? No / Unsure 09/16/2020 1:29 PM HYDROELECTRIC OPERATOR documented as of this encounter Functional Status documented as of this encounter Plan of Treatment Not on file documented as of this encounter Results * PRE-SURGICAL/PRE-PROCEDURE CORONAVIRUS (COVID 19) (09/13/2020 10:50 AM HYDROELECTRIC OPERATOR) CORONAVIRUS SARS COV 2 PCR (RESP) NOT DETECTED NOT DETECTED 09/14/2020 2:26 PM HYDROELECTRIC OPERATOR [facility] Comment: A Not Detected (negative) test [...] providers and patients using the following websites: https://[email or web address].Vidit/home/Covid-19/HCP/NAAT/fact-sheet2 https://www.[place].Vidit/home/Covid-19/Patients/NAAT/ fact-sheet2 This test has been authorized by the FDA under an Emergency Use Authorization (EUA) for use by authorized laboratories. Due to the current public health emergency, [facility] is receiving a high volume of samples [...] about COVID-19 can be found at the [facility] website: www.[employer].Vidit/Covid19. Test performed at [facility] [place] [address] [place] [address] Director: CLARITZA GARCIA DO,MPH FIRST TEST NO 09/13/2020 10:52 AM HYDROELECTRIC OPERATOR [facility] EMPLOYED IN HEALTHCARE NO 09/13/2020 10:52 AM HYDROELECTRIC OPERATOR [facility] SYMPTOMATIC DEFINED BY CDC NO 09/13/2020 10:52 AM HYDROELECTRIC OPERATOR [facility] DATE OF SYMPTOM ONSET UNKNOWN 09/13/2020 1:11 PM [facility] HOSPITALIZATION STATUS NO 09/13/2020 10:52 AM [facility] PATIENT IN ICU NO 09/13/2020 10:52 AM [facility] RESIDENT OF [facility] NO 09/13/2020 10:52 AM [facility] UNKNOWN 09/13/2020 1:11 PM [facility] PATIENT'S RACE WHITE OR 09/13/2020 10:52 AM [facility] ETHNICITY NONHISPANIC 09/13/2020 10:52 AM [facility] SOURCE (QST) NASOPHARYNGEAL SWAB 09/13/2020 10:52 AM [facility] NASOPHARYNGEAL SWAB / Unknown 09/13/2020 10:50 AM HYDROELECTRIC OPERATOR us Kirk Neal MD MICROBIOLOGY - GENERAL ALON ERAZO Final Result [facility] [address] [place] [address], [facility] [address] [place] [address], documented in this encounter Visit Diagnoses Diagnosis GERD (gastroesophageal reflux disease)- Primary Esophageal reflux documented in this encounter Additional Health Concerns Infection Onset Date Last Indicated Resolved Time COVID-19 Rule Out 09/13/2020 09/13/2020 09/14/2020 2:27 PM HYDROELECTRIC OPERATOR documented as of this encounter Care Teams Mesh Cutter Relationship Specialty Start Date End Date Anastasia Min DO [facility] [address] [place] [phone] PCP - General FAMILY PRACTICE 09/30/18 04/28/21 Genaro Theodore DO 3 [facility] [address] [place] [phone] PCP - General FAMILY PRACTICE 04/29/21 documented as of this encounter
--- OUTSIDE RECORDS SUMMARY | 2024-12-27 00:42 | XMS_ITS | Referral Summary ---
Author Organization [facility] Address [address] [place] [address] Care Team Providers Care Tissue Inserter Name Role Phone Silvio Kovacs MD Primary Care Provider [phone] Allergies No known active allergies Medications fluticasone [...] (10/24/2021): Added automatically from request for surgery [id number] Acute bronchitis 10/13/2021 Essential hypertension 01/18/2017 Mixed [...] on file Legal Sex Female 8:51 PM LOAN CONSULTANT Gender Identity Female 12/01/2021 1:16 PM CDT Sexual Orientation Not on file Last Filed Vital Signs Vital Sign Reading Time Taken Comments Blood Pressure 124/70 09/21/2024 5:57 PM LOAN CONSULTANT Pulse 90 09/21/2024 5:57 PM LOAN CONSULTANT Temperature 36.6 C (97.9 F) 09/21/2024 5:57 PM LOAN CONSULTANT Respiratory Rate 24 09/21/2024 5:57 PM LOAN CONSULTANT Oxygen Saturation 98% 09/21/2024 5:57 PM LOAN CONSULTANT Inhaled Oxygen Concentration - - Weight 75.3 kg (166 lb) 09/21/2024 5:57 PM LOAN CONSULTANT Height 160 cm (5' 3 ) 01/23/2022 2:26 PM CDT Body Mass Index 29.41 01/23/2022 2:26 PM CDT Plan of Treatment Not on file Medical Devices Implanted Type Area Refrigerator Assembler Device Identifier Shelf Expiration Date Model / Serial / Lot [employer]A 10x7cm Reinforcement Tissue Mesh Surgical Synthetic [id number] - [id number] - [id number] Implanted:Qty: 1 on 12/29/2021 by Laurent Barboza MD at [facility] Mesh N/A: Abdomen Wl [employer] [id number] 09/15/2024 [id number] / [id number] / Insurance MEDICARE [facility] MEDICARE [facility] MEDICARE [facility] [place] [address] Advance Directives For more information, please contact: [phone] * Full Code (Latest Code Status on File) Date Activated Date Inactivated Comments 12/29/2021 2:05 PM 12/31/2021 9:45 PM Care Teams Tissue Inserter Relationship Specialty Start Date End Date Silvio Kovacs MD [address] [place] [address] PCP - General Scouring Train Operator 09/21/24
--- OUTSIDE RECORDS SUMMARY | 2024-12-27 00:42 | XMS_ITS | Clinical Summary ---
Author Organization [facility] Address [address] [place] [address] Care Team Providers Care Edi Developer Name Role Phone Silvio Kovacs MD Primary Care Provider [phone] Allergies No known active allergies Medications fluticasone [...] (10/24/2021): Added automatically from request for surgery [id number] Acute bronchitis 10/13/2021 Essential hypertension 01/18/2017 Mixed anxiety and depressive disorder 08/15/2016 Surgical History Surgery Date Site/Laterality Comments SECTION HYSTERECTOMY WRIST FRACTURE SURGERY Medical History Medical History Date Comments Hiatal hernia GERD (gastroesophageal reflux disease) HTN (hypertension) Anxiety Depression High cholesterol Social History Tobacco Use Types Packs/Day Years Used Date Smoking Tobacco: Former Cigarettes 1 48 1 0 2017 Smokeless Tobacco: Never AUDIT-C Answer Date [...] on file Legal Sex Female 8:51 PM MANAGER EDUCATION Gender Identity Female 12/01/2021 1:16 PM CDT Sexual Orientation Not on file Obstetrics History Last Filed Vital Signs Vital Sign Reading Time Taken Comments Blood Pressure 124/70 09/21/2024 5:57 PM MANAGER EDUCATION Pulse 90 09/21/2024 5:57 PM MANAGER EDUCATION Temperature 36.6 C (97.9 F) 09/21/2024 5:57 PM MANAGER EDUCATION Respiratory Rate 24 09/21/2024 5:57 PM MANAGER EDUCATION Oxygen Saturation 98% 09/21/2024 5:57 PM MANAGER EDUCATION Inhaled Oxygen Concentration - - Weight 75.3 kg (166 lb) 09/21/2024 5:57 PM MANAGER EDUCATION Height 160 cm (5' 3 ) 01/23/2022 [...] Tdap) 12/23/2023 12/22/2013 Covid-19 Vaccine (4 - 2024-2 5 season) 2024 07/08/2021, 12/16/2020, 11/25/2020 Influenza Vaccine (#1) 2024 , 05/03/2020, 09/12/2019, Additional history exists Osteoporosis Screening-Bone Density Scan 08/05/2024 08/05/2022 Medical Devices Implanted Type Area Journalism Intern Device Identifier Shelf Expiration Date Model / Serial / Lot [employer] 10x7cm Reinforcement Tissue Mesh Surgical Synthetic [id number] - [id number] - [id number] Implanted:Qty: 1 on 12/29/2021 by Laurent Barboza MD at [facility] Medicine Mesh N/A: Abdomen Wl [employer] [id number] 09/15/2024 [id number] / [id number] / Insurance MEDICARE [facility] [place] [address] [place] [address] [place] [address] Advance Directives For more information, please contact: [phone] * Full Code (Latest Code Status on File) Date Activated Date Inactivated Comments 12/29/2021 2:05 PM 12/31/2021 9:45 PM Care Teams Edi Developer Relationship Specialty Start Date End Date Silvio Kovacs MD [address] [place], [place] [id number] PCP - General Arts Manager 09/21/24
--- OUTSIDE RECORDS SUMMARY | 2024-12-27 00:42 | XMS_ITS | Data Portability ---
Author Organization [facility] Vikram Vallejo Address [address] [facility] [place] [address] Care Team Providers Care Tile Sorter Name Role Phone ROMEO BRAXTON General Surgeon DAVID BARNES Primary Care Provider Unavailabl e Assessment Encounter Date Assessment Date Assessment LastModified by Organization Details LastModified Time 07/29/2023 07/29/2023 All questions and concerns were discussed and addressed at this time. Pt denies having any fevers, chills, SOB, chest pain, N/V, or abdominal pain. All questions and concerns were discussed and addressed at this time. F/U in 2m for full physical. lab work and BP check Not available 07/29/2023 16:49:09 11/25/2023 11/25/2023 All questions and concerns were discussed and addressed at this time. Pt denies having any fevers, chills, SOB, chest pain, N/V, or abdominal pain. All questions and concerns were discussed and addressed at this time. F/U in 2m for full physical. lab work and BP check Not available 11/25/2023 15:53:15 12/30/2023 12/30/2023 All questions and concerns were discussed and addressed at this time. Pt denies having any fevers, chills, SOB, chest pain, N/V, or abdominal pain. All questions and concerns were discussed and addressed at this time. F/U in 2m for full physical. lab work and BP check Not available 12/29/2023 22:46:33 01/26/2024 01/26/2024 68 yo F with MHx of HTN, GERD, Hyperlipidemia, anxiety and depressive disorder, presents to the office for a follow up on her weight. All questions and concerns were discussed and addressed at this time. Pt denies having any fevers, chills, SOB, chest pain, N/V, or abdominal pain. Not available 01/26/2024 12:18:27 12/18/2024 12/18/2024 Contributing Factors to Frailty and or Sarcopenia Risk: Mental health condition: no Chronic co-morbid conditions: no Poor social support: no Low/fixed income constraints: no Polypharmacy: no Limitations to physical activity: no Plan: Strength/Resist ance Training handout: no Contributing Factors to Weight Loss/Nutritiona l Risk: Medication side effects: no Problems chewing or swallowing: no Problems with appetite: no Mental health condition: no Substance use disorder: no Chronic co-morbid conditions: no Poor social support: no Low/fixed income constraints: no Plan: Nutrition Referral: no Community Health Worker for food resources: All questions and concerns were discussed and addressed at this time. Pt denies having any fevers, chills, SOB, chest pain, N/V, or abdominal pain. All questions and concerns were discussed and addressed at this time. F/U in 2m for full physical. lab work and BP check [email or web address] Not available 12/18/2024 19:05:46 Plan of Treatment Reminders Order Date Submit Date Provider Last Modified By Organization Details Last Modified Time Details Appointments None recorde dWillian Lab urinaly sis, complet e 2024 025 [facility], [address] [place] [address], [address], [place], [address], 5 10:35:55 HbA1c (hemogl obin A1c), blood 2022 023 [facility], [address] [place] [address], [address], [place], [address], 3 06:16:44 LOWELL (antinu clear antibod ies) screen, serum 2022 023 [facility], [address] [place] [address], [address], [place], [address], 3 13:10:00 rf (rheuma toid factor) + anti-cc p abs, serum 2022 023 [facility], [address] [facility], [address], [place], [address], 3 13:09:59 Referral physica l therapi st referra l - evaluat e (R) knee, lumbar spine, (R) shoulde r 2022 023 [facility] Not available 4 12:08:06 Procedures None recorde d. Surgeries None recorde d. Imaging US, knee - crhonic knee pain, XR 05/08 No acute bony abnorma lities. Mild degener ative changes are suggest ed. Small effusio n cannot be exclude d. 2023 024 [facility] Scheduling, [facility], [place], [address], 4 08:56:27 LDCT, chest, for lung cancer screeni ng [address] Scheduling, [facility], [place], [address], 4 18:27:30 US, knee - r/o poplite al effusio n [address] [facility] (Registration ), [facility], [place], [address], 4 16:29:29 Medication Orders trazodo ne 50 mg tablet 2024 025 [facility], [address], [place], [address], 5 00:17:27 pravast atin 20 mg tablet 2024 025 [facility] [address], [place], [address], 5 00:17:28 hydroxy zine HCl 25 mg tablet 2024 025 [facility], [place], [address], 5 00:17:57 sertral ine 100 mg tablet 2024 025 [facility], [place], [address], 5 00:17:26 lisinop ril 20 mg tablet 2024 025 [facility], [place], [address], 5 00:17:21 phenter mine 37.5 mg tablet [address] [facility], [address] [place], [address], 5 17:32:18 ibuprof en 600 mg tablet 2023 025 [facility] [address], [place], [address], 5 00:17:30 phenter mine 37.5 mg tablet [address] [facility], [address] [place], [address], 5 17:32:18 trazodo ne 50 mg tablet 2023 024 [facility], [place], [address], 4 18:47:32 omepraz ole 40 mg capsule ,delaye d release 2023 024 [facility], [place], [address], 4 18:47:35 lisinop ril 20 mg tablet 2023 024 [facility] [address], [place], [address], 4 18:47:29 phenter mine 15 mg capsule 2023 024 [email or web address] [address], [place], [address], 5 17:32:16 pravast atin 20 mg tablet 2023 024 [facility], [place], [address], 4 18:47:26 hydroxy zine HCl 25 mg tablet 2023 024 [facility] [address], [place], [address], 4 18:47:33 sertral ine 100 mg tablet 2023 024 [facility], [place], [address], 4 18:47:34 Voltare n Arthrit is Pain 1 % topical gel 2022 023 [facility], [place], [address], 3 19:37:58 Patient TargetsNo targets recorded. Patient Instructions Encounter Date Encounter Id Patient Instructions Last Modified By Organization Details Last Modified Time 07/29/2023 [id number] agree w plan and treatment and was present judit Not available 07/29/2023 16:47:41 11/25/2023 [id number] agree w plan and treatment and was present Dr. Essie spain Not available 11/25/2023 16:20:24 12/30/2023 [id number] I was present and available in the Family Medicine clinic to discuss the patient's care during the time of the appointment. All labs/imaging/con sults/prescripti ons to be followed by the resident rendering services on day of encounter. I agree with the resident's assessment and plan as documented with the following addendum: Per resident, the risks and benefits of phentermine were prev discussed w/ pt. Terence Melo Not available 01/04/2024 17:01:56 01/26/2024 [id number] learning about healthy weight Not available 01/26/2024 12:33:40 eating healthy foods: care instructions Not available 01/26/2024 12:33:40 I was present and available in the Family Medicine clinic to discuss the patient's care during the time of the appointment. All labs/imaging/con sults/prescripti ons to be followed by the resident rendering services on day of encounter. I agree with the resident's assessment and plan as documented with the following addendum: None. Terence Melo Not available 01/28/2024 18:34:23 12/18/2024 [id number] I certify that I was present for case discussion in the Family Medicine preceptor room at the time of this encounter. I have reviewed the note and agree with the findings, assessment, and plan except as I have documented below. Follow up as listed. All labs/imaging/con sults to be followed by the ordering provider. Maj Cecil, [facility], Staff Physician. fabi Not available 12/20/2024 09:37:50 Reason for Referral Physical Therapist Referral for Pain of right knee joint evaluate (R) knee, lumbar spine, (R) shoulder Referring Physician: David Barnes, Lehr Loader, Encounter Date: 07/29/2023 Results Created Date Observation Date Name Description Value Unit Range Abnormal Flag Note LastModifiedBy Organization Detail LastModifiedTime 07/29/2007/30/2023 RHEUM ATOID ARTHR ITIS PROFI LE rheumatoid factor (rf) 12.1 IU/mL <14.0 Not Available [facility]) [address] [facility], [place], [address], 07/30/2023 13:09:59 07/29/20 23 07/30/2023 RHEUM ATOID ARTHR ITIS PROFI LE anti-ccp Ab, IgG/IgA 2 units 0-19 Negat maik <20 Weak posit maik 20 - 39 Moder ate posit maik 40 - 59 Stron g posit maik >59 Not Available [facility] ([facility]) [address] [facility], [place], [address], 07/30/2023 13:09:59 07/29/20 23 07/30/2023 LOWELL W/REF COOKIE IF POSIT MAIK LOWELL direct NEGATI VE negati ve Not Available [facility] ([facility]) [address] [facility], [place], [address], 07/30/2023 13:10:00 07/29/2007/30/2023 HEMOG LOBIN A1C hemoglobin A1C 5.9 % 4.8-5. 6 above high normal Predi abete s: 5.7 - 6.4 Diabe amanda: >6.4 Glyce nichelle contr ol for adult s with diabe amanda: <7.0 Not Available [facility] ([facility]) [address] [facility], [place], [address], 07/30/2023 06:16:44 09/21/19 25 09/21/2024 SARS- CoV+S ARS-C oV-2 (COVI D-19) Ag [Pres ence] in Respi rator y syste m speci men by Rapid immun oassa y influenza A Ag, POC NEGATI VE text: negati ve Influ alvino A Ag, POC Negat maik Negat maik [facility] Not Available Not Available 09/25/2024 22:08:55 09/21/19 25 09/21/2024 SARS- CoV+S ARS-C oV-2 (COVI D-19) Ag [Pres ence] in Respi rator y syste m speci men by Rapid immun oassa y influenza B Ag, POC NEGATI VE text: negati ve Influ alvino B Ag, POC Negat maik Negat maik [facility] CC EDW Not Available Not Available 09/25/2024 22:08:55 09/21/19 25 09/21/2024 SARS- CoV+S ARS-C oV-2 (COVI D-19) Ag [Pres ence] in Respi rator y syste m speci men by Rapid immun oassa y covid-19 Ag POC PRESUM PTIVE NEGATI VE text: presum ptive negati ve, invali d COVID -19 Ag POC Presu mptiv e Negat maik Presu mptiv e Negat maik, Inval id [facility] CC EDW Not Available Not Available 09/25/2024 22:08:55 09/21/19 25 09/21/2024 SARS- CoV+S ARS-C oV-2 (COVI D-19) Ag [Pres ence] in Respi rator y syste m speci men by Rapid immun oassa y interpretati on and review of laboratory results NORMAL Not Available Not Available 09/16 22:08:55 01/20/20 24 LDCT, chest , for lung cance r scree colby [facility] [address] [facility] [place] [address] EXAM: LUNG SCREEN ING LOW-DO SE CT THORAX WITHOU T CONTRA ST Access ion: [id number] DATE: 024 HISTOR Y: Asympt omatic patien t meetin g NCCN high-r isk criter ia for lung screen ing. COMPAR ZA: 2021 TECHNI QUE: Noncon trast, helica l, low-do se CT (LDCT) chest per standa rd depart mental protoc ol. Automa mando exposu re contro l was utiliz ed for dose reduct ion. FINDIN GS: Lung Screen ing Specif ic (LUNG- RADS): 2 mm nodule left upper lobe axial image 29. Stable . Lung RADS 2. 3 mm nodule left lower lobe axial image 94. Stable . Lung RADS 2. 2 mm nodule left lower lobe axial image 71. Stable . Lung RADS 2. 3 mm right middle lobe nodule axial image 93. Stable . Lung RADS 2. Potent ially Signif icant Incide ntals (LUNG- RADS catego ry S): None. Pulmon emile Incide ntals: Mild emphys joslyn. Other Incide ntals: Athero sclero sis, durant ry calcif icatio ns. Postsu rgical change s of the gastro esopha geal juncti on. Multip le cysts of the kidney s. Degene rative change s of the spine. IMPRES NOEMI: 1. Lung-R ADS Catego ry 2: Benign appear ance or behavi or. Nodule s with a very low likeli kelly of becomi ng a clinic ally active cancer due to size or lack of growth . 2. LUNG-R ADS catego ry S: Negati ve, no new/un known potent ially signif icant incide ntal findin gs requir ing urgent additi onal evalua tion. 3. Other incide ntal findin gs as above. RECOMM ENDATI ONS: Follow -up LDCT Chest in 12 months (on or around ). Referr ed By: PARAM Louie onical ly Signed By: Anmol Juarez MD on 01/20/20 11:23 AM Interp reted By: Anmol Juarez MD, 01/20/20 11:18 AM [email or web address] [address] [facility], [place], [address], 01/26/2024 12:33:44 01/21/20 24 US, knee [facility] [place] [address] EXAMIN ATION: SUPERF ICIAL SOFT TISSUE ULTRAS OUND Access ion: [id number] Exam Date: 3:15 PM INDICA TION: Right knee pain for one year TECHNI QUE: Static sonogr aphic graysc pb images obtain ed and supple mented with Lance marroquin COMPAR ZA: No simila r study FINDIN GS: A small right latera l knee joint fairly simple appear ing effusi on/flu id collec tion is demons trated measur es agustin lly transv ersely nearly 5 cm. No management intern al solid nodula r compon ent or management intern al vascul arity. No surrou nding hypere nichelle change s. ====== ====== IMPRES NOEMI: ====== ====== Latera l knee joint effusi on noted sonogr aphica lly. ====== ====== ====== ====== ====== ====== AHIP Ordere d By: PARAM Louie onical ly Signed By: Kimmy Carpenter MD on 01/21/20 6:49 AM Interp reted By: Kimmy Carpenter MD, 01/21/20 6:46 AM nova [facility] [address] [facility], [place], [address], 01/31/2024 08:56:27 09/15/19 25 MRI shoul jonny RT wo con [facility] [address] [facility] [place] [address] [facility] [place] [address] [facility] [address] [address] Examin ation: MRI SHOULD ER RT WO CON Clinic al Inform ation: Right should er pain. Compar za: Radiog raphs April 08, 2023. Techni que: Multip lanar, multis equenc e MR images of the right should er were obtain ed withou t contra st. Findin gs: ROTATO R CUFF: Rotato r cuff: There is full thickn ess tearin g of the supras pinatu s and infras pinatu s with retrac tion to the level of the joint space. A few of the anteri or fibers of the supras pinatu s and supervisor conditioning yard ior fibers of the infras pinatu s appear intact . No distin ct subsca pulari s tear noted. Muscul ature: Modera te fatty atroph y of the supras pinatu s and infras pinatu s muscul ature. LONG BICIPI CARL TENDON : The long head biceps tendon is not identi fied and may be torn and retrac mando. OSSEOU S STRUCT URES/A RTICUL ATIONS : Bones: No fractu re or destru ctive bone proces s. Glenoh umeral joint: Modera te arthri tic change s of the glenoh umeral joint. Acromi oclavi cular joint: There are mild degene rative change s of the acromi oclavi cular joint. LABRUM : Diffus e degene ration and blunti ng of the labrum . No parala bral cysts are seen. FLUID: Joint fluid: Small joint effusi on. Synovi um/Int ra-art icular fragme nts: No synovi al thicke colby or intra- articu lar fragme nts noted. Bursa: Fluid signal is presen t within the subacr omial and subdel toid bursa. OTHER: Suppor t struct ures: No capsul ar or ligame ntous abnorm ality is seen. Non-ro tator cuff muscul ature: There is no muscul ar tear, contus ion, or atroph y. Other: None. Impres noemi: 1. Full-t hickne ss tearin g of the supras pinatu s and infras pinatu s tendon s as descri bed. 2. No acute biceps tendon is not identi fied and may be torn and retrac mando. 3. Arthri tic change s of the glenoh umeral and AC joints . 4. Degene ration and blunti ng of the labrum . 5. Small joint effusi on. Ordere d By: PAIGE RAJAN ON Electr onical ly Signed By: Brent Victoria MD on 025 2:23 PM Interp reted By: Brent Victoria MD, 025 2:17 PM R should er pain for years, injury January 2024, pain steadi ly worsen ing with lockin g, poppin g, and limite d rom. [email or web address] [address] [facility], [place], [address], 12/18/2024 19:05:53 Result Notes None recorded. Problems Name Problem SNOMED Code Status Onset Date Resolution Date Notes Provider Name and Address Organization Details Recorded Time Hyperlip idemia 24806101 Active 2020 SENAIT Vargas - [facility] 2 11:38:45 Obesity 660796244 Active 2020 SENAIT Vargas [facility] 2 11:38:55 Multiple nodules of lung 406250924 Active 2020 Found on LDCT 05/09/21. Recommend ed repeat LDCT in April 2022. SENA[facility] Vargas [facility] 2 11:38:52 Rolling hiatus hernia with gastric volvulus 952096724 Completed 202012/30/2021 Removal Reason: underwent surgery SENA[facility] Vargas [facility] 2 17:18:27 Gastroes ophageal reflux disease 297763467 Active 2021 SENAIT Vargas [facility] 2 17:18:38 Osteopor osis 30900993 Active 2021 SENAIT Vargas [facility] 2 12:27:58 Acute bronchit is 89102424 Completed 04/16/2021 SENAIT Vargas - [facility] 1 11:34:07 Mixed anxiety and depressi ve disorder 552377866 Active 2016 SENAIT Vargas [facility] 2 11:38:48 [facility] hyperten noemi 84446995 Active 2016 Celsa peterson [place] - [facility] 2 11:37:59 Problem Notes None recorded. Procedures Surgical History Date Name Laterality Status Provider Name and Address Organization Details Recorded Time 12/30/19 repair of paraesophageal diaphragmatic hernia completed Celsa Chen [facility] 12/30/2021 17:14:58 06/20/20 21 Cerumen Removal completed Angle Daley [place] - [facility] 06/20/2021 16:09:14 Imaging Results Imaging Date Name Status LastModified by Organiz ation Details LastModified Time 01/20/2024 LDCT, chest, for lung cancer screening completed [address], [place], [address], 01/26/2024 12:33:44 01/21/2024 US, knee completed [email or web address] [address], [place], [address], 01/31/2024 08:56:27 09/15/2024 MRI shoulder RT wo con completed [address], [place], [address], 12/18/2024 19:05:53 Procedure Notes None recorded. Medical Equipment None Reported. Allergies No known drug allergies Medications Name Sig Start Date Stop Date Status Note LastModified by Organization Details LastModified Time celecoxib 200 mg capsule TAKE 1 CAPSULE BY MOUTH ONCE DAILY WITH FOOD NEEDED active Not Available Not Available No t Available prednison e 10 mg tablet TAKE 1 TABLET BY MOUTH TWICE DAILY 12/18 completed Not Available Not Available Not Available ipratropi um 0.5 mg-albute rol 3 mg (2.5 mg base)/3 mL nebulizat ion soln Inhale 3mL nebulize r solution 01/06 completed Administ ered by Sukhwinder, DIRECT[employer] Not Available Not Available Not Available trazodone 50 mg tablet Take 1 tablet every day by oral route in the evening for 90 days. 2024 active Not Available Not Available Not Avai lable lisinopri l 20 mg-hydroc hlorothia zide 12.5 mg tablet TAKE ONE TABLET BY MOUTH ONCE DAILY 06/05 completed Not Available Not Available Not Available Prozac 40 mg capsule Take 1 capsule every day by oral route. 12/03 completed Received refill request from pt for Prozac 40mg. Dr Saab approved 30-day supply. Kaitlyn garcia'sarah to [facility] . Not Available Not Available Not Available tizanidin e 4 mg tablet TAKE 1 TO 2 TABLETS BY MOUTH EVERY DAY AT BEDTIME NEEDED active Not Available Not Available No t Available sucralfat e 100 mg/mL oral suspensio n Take 1 g 4 times a day by oral route. 04/16 completed Not Available Not Available Not Available lisinopri l 20 mg tablet Take 1 tablet every day by oral route in the evening for 90 days. 2024 active Not Available Not Available Not Avai lable prednison e 20 mg tablet Take 2 tablets every day by oral route for 5 days. 01/06 completed Not Available Not Available Not Available sertralin e 100 mg tablet Take 1 tablet every day by oral route in the evening for 90 days. 2024 active Not Available Not Available Not Avai lable Debrox 6.5 % ear drops INSTILL 5 DROPS INTO AFFECTED EAR(S) BY OTIC ROUTE 2 TIMES PER DAY 06/05 completed Not Available Not Available Not Available Zithromax Z-Juan 250 mg tablet TAKE 2 TABLETS (500 MG) BY ORAL ROUTE ONCE DAILY FOR 1 DAY THEN 1 TABLET (250 MG) BY ORAL ROUTE ONCE DAILY FOR 4 DAYS 12/03 completed Not Available Not Available Not Available phentermi ne 15 mg capsule TAKE 1 CAPSULE BY MOUTH ONCE DAILY 12/18 completed Not Available Not Available Not Available phentermi ne 37.5 mg tablet TAKE 1 TABLET BY MOUTH ONCE DAILY IN THE MORNING 12/18 completed Not Available Not Available Not Available omeprazol e 40 mg capsule,d elayed release TAKE 1 CAPSULE BY MOUTH ONCE DAILY 2023 active Not Available Not Available Not Avai lable meloxicam 7.5 mg tablet TAKE 1 TABLET BY MOUTH TWICE DAILY NEEDED FOR 15 DAYS 12/18 completed Not Available Not Available Not Available hydrocort isone 1 % topical cream APPLY A THIN LAYER TO THE AFFECTED AREA(S) BY TOPICAL ROUTE 2 TIMES PER DAY 01/06 completed Not Available Not Available Not Available Prozac 20 mg capsule Take 1 capsule every day by oral route. 12/03 completed Received message from pt luh gamez refill on fluoxeti ne. Refill approved and erx'd to [facility] . Not Available Not Available Not Available triamcino lone acetonide 0.025 % topical ointment APPLY A THIN LAYER TO THE AFFECTED AREA(S) BY TOPICAL ROUTE 2 TIMES PER DAY 01/06 completed Not Available Not Available Not Available omeprazol e 20 mg capsule,d elayed release Take 1 capsule every day by oral route as directed for 30 days. 05/31 completed increase d to 40mg Not Available Not Available Not Available lisinopri l 20 mg-hydroc hlorothia zide 25 mg tablet Take 1 tablet every day by oral route. 06/24 completed Not Available Not Available Not Available hydroxyzi ne HCl 25 mg tablet TAKE 1 TABLET BY MOUTH THREE TIMES DAILY 2024 active Not Available Not Available Not Avai lable pravastat in 20 mg tablet Take 1 tablet every day by oral route in the evening for 90 days. 2024 active pt hyun smith refill per portal. Not Available Not Available Not Available ibuprofen 600 mg tablet Take 1 tablet 3 times a day by oral route as needed, for knee pain. 12/18 completed Not Available Not Available Not Available albuterol sulfate HFA 90 mcg/actua tion aerosol inhaler Inhale 2 puffs every 4 hours by inhalati on route for 30 days. 06/05 completed Not Available Not Available Not Available fluticaso ne propionat e 50 mcg/actua tion nasal spray,anil pension USE 1 TO 2 SPRAY(S) IN EACH NOSTRIL TWICE DAILY AIM BACK/UP/ OUT INTO EACH NOSTRIL active Not Available Not Available No t Available sertralin e 50 mg tablet Take 1.5 tablets every day by oral route for 90 days. 04/16 completed Not Available Not Available Not Available Benadryl 25 mg capsule Take 1 capsule twice a day by oral route. 09/30 completed Not Available Not Available Not Available Voltaren Arthritis Pain 1 % topical gel APPLY 2 GRAMS TO THE AFFECTED AREA(S) BY TOPICAL ROUTE 4 TIMES PER DAY 2023 active Not Available Not Available Not Avai lable Vitals Date Recorded Body height Body mass index (BMI) Body weight Body temperature Heart rate Oxygen saturation Oxygen saturation in Arterial blood by Pulse oximetry Systolic blood pressure Diastolic blood pressure Provider Name and Address Organization Details Last Updated DateTime 3 160.02 cm 29.1 kg/m2 12838.9 g 97.3 [degF] 73 /min 98 % 98 % 117 mm[Hg] 77 mm[Hg] Annalisa Bolaños MA [facility] 3 16:09:52 Date Recorded Body height Body mass index (BMI) Body weight Body temperature Oxygen saturation Oxygen saturation in Arterial blood by Pulse oximetry Heart rate Systolic blood pressure Diastolic blood pressure Provider Name and Address Organization Details Last Updated DateTime 4 160.02 cm 29.1 kg/m2 46559.2 g 97.8 [degF] 99 % 99 % 75 /min 124 mm[Hg] 77 mm[Hg] Maggie Mendez MA [facility] 4 15:48:37 Date Recorded Body height Body mass index (BMI) Body weight Body temperature Oxygen saturation Oxygen saturation in Arterial blood by Pulse oximetry Heart rate Systolic blood pressure Diastolic blood pressure Provider Name and Address Organization Details Last Updated DateTime 4 160.02 cm 28.7 kg/m2 41005.9 6 g 97.8 [degF] 97 % 97 % 81 /min 109 mm[Hg] 75 mm[Hg] Ulisses Braun [place] - [facility] 4 15:44:23 Date Recorded Body height Body mass index (BMI) Body weight Body temperature Heart rate Systolic blood pressure Diastolic blood pressure Provider Name and Address Organization Details Last Updated DateTime 4 160.02 cm 28.4 kg/m2 91173.4 8 g 98.1 [degF] 74 /min 123 mm[Hg] 84 mm[Hg] Maggie Mendez [place] - [facility] 12:13:01 Date Recorded Body height Body mass index (BMI) Body weight Body temperature Oxygen saturation Oxygen saturation in Arterial blood by Pulse oximetry Heart rate Systolic blood pressure Diastolic blood pressure Provider Name and Address Organization Details Last Updated DateTime 160.02 cm 29.8 kg/m2 98778.2 7 g 97.2 [degF] 95 % 95 % 68 /min 117 mm[Hg] 79 mm[Hg] Annalisa Bolaños [place] - [facility] 17:11:56 Social History Question Answer Notes LastModified by [employer] Details LastModified Time Tobacco Smoking Status Former Smoker Pt quit smoking cigarettes in 2017. Samson RoqueGEOFFREY null, [place] - [facility] 04/16/2021 11:20:59 Advanced Directive No Mailed POA Form. 12/13/2024. [email or web address] Information not available 12/13/2024 FRAIL Score 3 [email or web address] Information not available 12/13/2024 SARC-F Score 5 [email or web address] Information not available 12/13/2024 SNAQ Score 9 Information n ot available 12/13/2024 Rapid Cognitive Screen Score 6 6/6, Cognitive Screen To Be Completed At Next Appointment. [email or web address] Information not available 12/13/2024 What Was The Date Of Your Most Recent Tobacco Screening? 12/18/2024 [email or web address] Information not available 12/18/2024 How Many Years Have You Used E-cigarettes Or Vape? 4 Information not available 04/16/2021 Sex: Unknown Functional Status Question Answer Note LastModified by [employer] Details LastModified Time Do you use any illicit or recreational drugs? No Information not available 04/16/2021 Do you or have you ever used any other forms of tobacco or nicotine? Yes Information not available 04/16/2021 What is your level of alcohol consumption? None Information not available 04/16/2021 Do you or have you ever used smokeless tobacco? Never used smokeless tobacco Information not available 04/16/2021 Do you or have you ever used e-cigarettes or vape? Current user of electronic cigarettes [email or web address] Information not available 09/12/2019 Mental Status None recorded. Family History Nothing Reported. Medical History No medical history recorded. Gynecological HistoryNo gynecological history recorded. Obstetrics History GPAL:G 0 P 0 0 0 0 Immunizations Vaccine Type Date Status Note Provider Nam e and Address Organization Details Recorded Time COVID-19, mRNA, LNP-S, PF, 30 mcg/0.3 mL dose 1 completed Celsa peterson, [place] - [facility] 06/05/2022 14:53:35 COVID-19, mRNA, LNP-S, PF, 30 mcg/0.3 mL dose 1 completed Celsakirsten Theodore nicholas, [place] - [facility] 06/05/2022 14:53:35 Tdap 4 completed Celsa Arben null, [place] - [facility] 06/05/2022 14:53:35 Influenza, split virus, quadrivalent, preservative [id number]|2024-12-27 00:43:00|2024-12-27 00:42:00|XMS_ITS|IRINA MARCUS|External Medical Summaries|[id number]|" Clinical Summary Created on: December 27, 2024 Evy Croft : 1955 Sex: Female Author Organization [facility] Address [address] [place] [address] Care Team Providers Care Tile Sorter Name Role Phone ArbenCelsa Brian VALERO Primary Care Provider [phone] Allergies No known active allergies Medications hydrOXYzine [...] Sex Assigned at Female 09/12/2024 3:11 PM WIND COMMISSIONING TECHNICIAN Legal Sex Female 8:25 PM CDT Gender Identity Not on file Sexual Orientation Not on file Last Filed Vital Signs Vital Sign Reading Time Taken Comments Blood Pressure 138/70 09/16/2020 5:30 PM WIND COMMISSIONING TECHNICIAN Pulse 62 09/16/2020 5:30 PM WIND COMMISSIONING TECHNICIAN Temperature 36 C (96.8 F) 09/16/2020 4:40 PM WIND COMMISSIONING TECHNICIAN Respiratory Rate 15 09/16/2020 5:30 PM WIND COMMISSIONING TECHNICIAN Oxygen Saturation 99% 09/16/2020 5:30 PM WIND COMMISSIONING TECHNICIAN Inhaled Oxygen Concentration - - Weight 76.7 kg (169 lb) 09/11/2020 10:06 AM WIND COMMISSIONING TECHNICIAN Height 162.6 cm (5' 4 ) 09/11/2020 10:06 AM WIND COMMISSIONING TECHNICIAN Body Mass Index 29.01 09/11/2020 10:06 AM WIND COMMISSIONING TECHNICIAN Plan of Treatment Health Maintenance Due Date Last Done Comments Hepatitis C 1974 Zoster Vaccines (1 of 2) 2006 Annual Medicare Wellness Visit 2021 DTaP, Tdap and Td Vaccines ( 2 - Td or Tdap) 12/23/2023 12/22/2013 COVID-19 Vaccine (2023-2 5 season) 2024 07/08/2021, 12/16/2020, 11/25/2020 Mammogram Screening 08/05/2024 08/05/2022, 06/17/2018 PHQ-2 (Physician Scurry) 08/16/2024 Colorectal Cancer Screening Colonoscopy (10 Years) [...] this topic Medical Devices Implanted Type Area Box Strapper Device Identifier Shelf Expiration Date Model / Serial / Lot Other Description:Patient unsure i f she has any hardware to left wrist Procedures Procedure Name Priority Date/Time Associated Diagnosis Comments BONE DENSITY/DEXA Routine 08/05/2022 1:2 3 PM WIND COMMISSIONING TECHNICIAN Encounter for screening for osteoporosis MG SCREENING W MALINDA CALISTA DIGI Routine 08/05/2022 12:48 PM WIND COMMISSIONING TECHNICIAN Encounter for screening mammogram for malignant neoplasm of breast COLONOSCOPY Routine 09/16/2020 3:53 PM WIND COMMISSIONING TECHNICIAN from Last 3 Months or Most Recently Relevant to Health Maintenance Results * BONE DENSITY/DEXA (08/05/2022 1:23 PM WIND COMMISSIONING TECHNICIAN) Anatomical Region Laterality Modality Bone Mammography 08/05/2022 2:14 PM WIND COMMISSIONING TECHNICIAN Impressions 08/05/2022 2:15 PM WIND COMMISSIONING TECHNICIAN IMPRESSION: WHO Classification: Osteoporosis RECOMMENDATIONS: All patients [...] or have additional risk factors. Referred By: CELSA THEODORE Interpreted By: Kennedy Mishra MD, 08/05/2022 2:14 PM Narrative 08/05/2022 2:15 PM WIND COMMISSIONING TECHNICIAN EXAMINATION: BONE DENSITY/DEXA INDICATIONS: screening for osteoporosis [...] or have additional risk factors. Referred By: CELSA THEODORE Interpreted By: Kennedy Mishra MD, 08/05/2022 2:14 PM us Celsa Theodore DO DEXA Final Result * MG SCREENING W MALINDA CALISTA DIGI (08/05/2022 12:48 PM WIND COMMISSIONING TECHNICIAN) Anatomical Region Laterality Modality Breast Bilateral Mammography 08/05/2022 4:40 PM WIND COMMISSIONING TECHNICIAN Narrative 08/05/2022 4:41 PM WIND COMMISSIONING TECHNICIAN Examination: Digital screening mammogram with CAD. Clinical [...] BI-RADS 2 - BENIGN FINDING(S) Ordered By: CELSA THEODORE Interpreted By: Jamie Chavez MD, 08/05/2022 4:40 PM us Celsa Theodore DO MAMMO Final Result * Colonoscopy (09/16/2020 3:53 PM WIND COMMISSIONING TECHNICIAN) Kirk Butterfield MD - 09/16/2020 3:53 PM WIND COMMISSIONING TECHNICIAN Kirk Neal MD 09/19/2020 7:14 AM KIRK NEAL MD, FACG, FACP COLONOSCOPY and EGD EGD INDICATION: GERD and dysphagia. POST-OP: 8 cm hiatal hernia. Esophageal dilation done. SEDATION: Per Anesthesia With the patient in the left lateral decubitus position, the Olympus [id number] endoscope was used to easily intubate the [...] the left lateral decubitus position, the Olympus [id number] colonoscope was introduced into the rectum and [...] follow-up with my office in one month. Kirk Neal M.D. Kirk Neal MD GI PROCEDURE ORDERABLES Fin al Result from Last 3 Months or Most Recently Relevant to [place] [address] MEDICARE Care Teams Tile Sorter Relationship Specialty Start Date End Date Celsa Theodore DO PCP - General FAMILY PRACTICE 04/29/21 "
--- OUTSIDE RECORDS SUMMARY | 2024-12-27 00:43 | XMS_ITS | Clinical Summary ---
Author Organization [facility] Address [address] [place] [address] Care Team Providers Care Jewelry Consultant Name Role Phone Ryan Erickson MD Primary Care Provider [phone] Source Comments [facility],non-owned Affiliates and Associated Physician Practices is amultiple site organization consisting of ambulatory clinics and hospital sitesin [place], [place], [place] and [place]. This disclosure is being madepursuant to the Care Everywhere program and may not contain all information available regarding this patient. Last updated 18.[facility] Allergies No known active allergies Medications * [...] on file Legal Sex Female 10:33 AM DINING CAR HOP Gender Identity Not on file Sexual Orientation Not on file Last Filed Vital Signs Vital Sign Reading Time Taken Comments Blood Pressure 110/74 07/12/2017 5:40 PM DINING CAR HOP Pulse 81 07/12/2017 5:40 PM DINING CAR HOP Temperature 36.8 C (98.2 F) 07/12/2017 5:40 PM DINING CAR HOP Respiratory Rate 20 07/12/2017 5:40 PM DINING CAR HOP Oxygen Saturation 98% 07/12/2017 5:40 PM DINING CAR HOP Inhaled Oxygen Concentration - - Weight 73 kg (161 lb) 07/12/2017 5:40 PM DINING CAR HOP Height 162.6 cm (5' 4 ) 07/12/2017 5:40 PM DINING CAR HOP Body Mass Index 27.64 07/12/2017 5:40 PM DINING CAR HOP Plan of Treatment Health Maintenance Due Date [...] age to complete this topic Care Teams Jewelry Consultant Relationship Specialty Start Date End Date Ryan Erickson MD [address] [id number] PCP - General Student Resident 07/12/17
[2024-12-27] MEDS: ACETAMINOPHEN 500 MG TABLET 1000 MG PO (06:35)
--- NOTE | 2024-12-27 06:38 | WPDHPUPDATE1 ---
History and Physical Update Update Date/Time: 12/27/24 06:38 History and Physical has been reviewed, including an updated exam of the patient. There are NO changes in the patient's condition. Risks, benefits, and alternatives have been discussed and questions answered. Patient agrees to proceed with procedure.
[2024-12-27] MEDS: LACTATED RINGERS 1,000 ML 30 ML IV CONT ×2 (06:40→09:17)
[2024-12-27] MEDS: TRANEXAMIC ACID 1,000MG/ISO100 1,000 MG/100 ML BAG 200 MG IVPB (06:40)
[2024-12-27] MEDS: VANCOMYCIN 1,250 MG/NS 250 ML BAG 166.67 MG IVPB (06:45)
--- NOTE | 2024-12-27 07:16 | P.PNAN_ITS ---
Anes - Initial Pre Proc Eval Procedure: Operation Date: 12/27/24 07:30 Proposed Procedures p Right Total Knee Arthroplasty - Ronan Chavez MD Date/Time: 12/27/24 07:16 Surgeon: Ronan Chavez MD Pre Op Diagnosis: O A Right Knee Patient Data Age: 69 Gender: F Height: 1.6 m Weight: 77.1 kg Last Vital Signs Temp 36.6 C 12/27/24 06:29 Pulse 77 12/27/24 06:29 Resp 18 12/27/24 06:29 BP 128/86 12/27/24 06:29 Pulse Ox 99 12/27/24 06:29 O2 Del Method Room Air 12/27/24 06:29 Allergies Allergy/AdvReac Type Severity Reaction Status Date / Time No Known Allergies Allergy Verified 12/27/24 06:58 Home Medications Medication Instructions Recorded Confirmed Type famotidine 10 mg tablet 10 mg PO DAILY PRN indigestion 11/10/23 12/14/24 History hydroxyzine HCl 25 mg tablet 25 mg PO TID PRN anxiety 11/10/23 12/14/24 History lisinopril 20 mg tablet 20 mg PO DAILY 11/10/23 12/27/24 History pravastatin 20 mg tablet 20 mg PO DAILY 11/10/23 12/27/24 History sertraline 100 mg tablet 100 mg PO DAILY 11/10/23 12/27/24 History trazodone 50 mg tablet 50 mg PO QHS PRN sleep 11/10/23 12/14/24 History fiber 1 tablet PO DAILY 12/14/24 12/27/24 History fluticasone propionate 50 1 - 2 spray intranasal BID PRN 12/14/24 12/27/24 History mcg/actuation nasal nasal congestion spray,suspension (Flonase Allergy Relief) ibuprofen 200 mg tablet (Advil) 400 mg PO Q6H PRN pain 12/14/24 12/27/24 History loratadine 10 mg tablet (Claritin) 10 mg PO DAILY 12/14/24 12/27/24 History Patient hx anesthesia problems: none Family hx anesthesia problems: none Results Review: All pre-operative results and documents have been reviewed as part of the pre- operative evaluation. [facility] Past Medical History Medical History Hiatal hernia Migraine Anxiety Surgical History Surgical History H/O: section History of surgery on arm H/O: hysterectomy Family History Family History Mother Depression Thyroid disorder Father Acute myocardial infarction Sibling , MVC Accidental overdose Social History Social History Smoking status: Former smoker Tobacco type: e-cigarettes/vaping Second hand tobacco smoke exposure: No Alcohol intake: never Substance use: never Substance use type: does not use Do You Feel Safe in your Home?: Yes Lack of Transportation: No Lack of Food: Never True Current Housing: I Do Not Have Housing Concerned About Future Housing: No Difficulty Paying Gas/Electric Bills: No Difficulty Paying for Meds: No Currently Unemployed: No Education: High School Diploma/GED Difficulty w/ Childcare or Family Care: No Living arrangements: alone 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 Informed Consent: The patient's anesthetic plan and its attendant risks and benefits were discussed with the patient/family/POA. Questions were solicited and answers provided to the satisfaction of the patient/family/POA.
[2024-12-27] MEDS: ceFAZolin 2 GM/D5W 50 ML 2 GM/50 ML BAG IVPB ×3 (07:29→23:14)
[2024-12-27] MEDS: SODIUM CHLORIDE 0.9% IV 37.7 ML, MORPHINE SULFATE INJ (*CRX) 2 MG, ROPivacaine HCL 1% 2... INFILTRATE (07:54)
--- NOTE | 2024-12-27 08:50 | W.PM.PROC2 ---
Procedure Note - Detailed Date of Procedure 12/27/24 Pre-op Diagnosis Osteoarthritis Right Knee Post-op Diagnosis Same Procedure Performed RIGHT Total Knee arthroplasty Surgeon Ronan Chavez MD Anesthesia General Indications Pain and Arthritis Description of Procedure The patient was brought to operating room #8. A general anesthetic was administered. Placed on the operating table and sterilely prepped and draped in usual manner. A longitudinal incision was made. Tourniquet inflated to 300 mmHg for a total of 32 minutes. Dissection was carried down to the fascia. Medial parapatellar incision was made and the patella subluxated laterally. Patella cut from 23 to 15 mm. The tibia was cut perpendicular to the long axis and femur cut in 5 degrees of valgus. The components were trialed and the knee was noted to be stable with excellent motion. The soft tissues balanced, hemostasis obtained. All [address], 67 tibia, 60 femur, 31 mm patella, and 14 mm poly. Motion was 0-125 degrees with good stability in both flexion and extension. The wound was closed with #2 Vicryl, 2-0 Vicryl and ralph. Implants [employer] Estimated Blood Loss 200 Drains No Packing No Pathology None sent Complications No immediate complications Condition Stable Disposition PACU [facility] Billing Surgery - Charge Forward: Surgery Billing ([id number] TKA)
--- NOTE | 2024-12-27 09:34 | WPDANESPNB ---
Anes - Peripheral Nerve Block Date/Time: 12/27/24 09:34 I have discussed with the patient/family/POA the placement of a peripheral nerve block for post-operative pain management, including associated risks, benefits, complications, and side effects. Alternative methods of post-operative analgesia were detailed. Questions were solicited and answers provided to the satisfaction of the patient/family/POA. Time-Out: A pre-procedural Time-Out was completed immediately before starting the procedure and confirmed: Patient Identification, Site, Procedure, Patient Position and the Availability of Requisite Equipment. Clinical Indications: Acute post-operative pain management requested by the operative surgeon. Nerve Block Insertion Note Anes-nerve block: adductor canal right Patient position: supine Skin prep: chlorhexidine Needle: 22 gauge, stimulating, insulated echogenic needle. Needle length: 80 mm Technique: ultrasound Technique comment: done in PACU Injectate: bupivacaine 0.5% with epi 5 mcg/ml (30ml) Observations: tolerated well Complications: none Procedure start time:: 922 Procedure end time:: 929
[2024-12-27] MEDS: ONDANSETRON INJ 4 MG/2 ML VIAL IV PUSH (09:44)
[2024-12-27] MEDS: fentaNYL CITRATE INJ (*CRX) 100 MCG/2 ML VIAL 25 MCG IV PUSH ×2 (09:59→10:19)
--- NOTE | 2024-12-27 13:26 | ADMGEN ---
This patient, Evy Croft, was admitted to [facility] Surg Room 315-01. Patient/family oriented to hospital policies and general routines including ID bracelet, bed and alarms, visiting hours, pain management, procedures, bathroom and other care routines, personal items, smoking policy, room service/diet, and visiting hours. Information on how to activate the Rapid Response Team has been discussed. Patient/Family are encouraged to report perceived risks to care and to ask questions if they do not understand what they are told or what they should do.
[2024-12-27] MEDS: SENNA/DOCUSATE SODIUM TABLET 2 TAB PO (13:32)
[2024-12-27] MEDS: polyethylene glycoL 3350 17 GM POWD.PACK PO (13:32)
[2024-12-27] MEDS: HYDROcodone/acetaminophen (*CRX) 7.5-325 MG TABLET 1 TAB PO ×2 (13:33→19:54)
--- NOTE | 2024-12-27 15:40 | P.CONIM_ITS ---
Assessment and Plan Assessment and plan (1) Osteoarthritis of right knee: Code(s): M17.11 - Unilateral primary osteoarthritis, right knee Status: Acute Assessment and Plan: Status post total knee arthroplasty by Orthopedics on 12/27 Pain management per Ortho Postop antibiotic Celebrex Xarelto (2) Anxiety: Code(s): F41.9 - Anxiety disorder, unspecified Status: Acute Assessment and Plan: Restart home Zoloft and Atarax (3) Hypertension: Code(s): I10 - Essential (primary) hypertension Status: Acute Assessment and Plan: Restart home lisinopril (4) Hyperlipidemia: Code(s): E78.5 - Hyperlipidemia, unspecified Status: Acute Assessment and Plan: Restart home statin HPI Date of Consult Consult date: 12/27/24 Requesting Physician: Ronan Chavez MD Primary Care Provider: Silvio Kovacs Consult Narrative Reason for consult: Medical management Narrative: Evy Croft is a 69 year old female with past medical history of migraines and anxiety osteoarthritis of the right knee presents the hospital for planned right total knee arthroplasty. Patient states that she is doing well postop and denies nausea or vomiting. She states that the pain meds are helping with the pain. Review of Systems Review of Systems: 12 systems were reviewed and are negativ e except for as per HPI. PMFSH Past Medical History Medical History Hiatal hernia Migraine Anxiety Surgical History Surgical History H/O: section History of surgery on arm H/O: hysterectomy Family History Family History Mother Depression Thyroid disorder Father Acute myocardial infarction Sibling , MVC Accidental overdose Social History Social History Smoking packs per day: 1 Smoking cigarettes per day: 20.0 Years smoked: 35 Smoking pack-years: 35.00 Smoking status: Former smoker Tobacco type: e-cigarettes/vaping Second hand tobacco smoke exposure: No Smoking end date: 02/13/13 Additional smoking assessment comments: VAPES DAILY(WITH LOW NICOTINE VAPE) Alcohol intake: never Substance use: never Substance use type: does not use Do You Feel Safe in your Home?: Yes Lack of Transportation: No Lack of Food: Never True Current Housing: I Have Housing Concerned About Future Housing: No Difficulty Paying Gas/Electric Bills: No Difficulty Paying for Meds: No Currently Unemployed: No Education: Decline to Answer Difficulty w/ Childcare or Family Care: Decline to Answer Living arrangements: alone Occupation/Education: retired 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 Gender identity (if verbalized by the patient): Female Spiritual care concerns: No Meds Home Medications and Allergies Home Medications Medication Instructions Recorded Confirmed Type famotidine 10 mg tablet 10 mg PO DAILY PRN indigestion 11/10/23 12/14/24 History hydroxyzine HCl 25 mg tablet 25 mg PO TID PRN anxiety 11/10/23 12/14/24 History lisinopril 20 mg tablet 20 mg PO DAILY 11/10/23 12/27/24 History pravastatin 20 mg tablet 20 mg PO DAILY 11/10/23 12/27/24 History sertraline 100 mg tablet 100 mg PO DAILY 11/10/23 12/27/24 History trazodone 50 mg tablet 50 mg PO QHS PRN sleep 11/10/23 12/14/24 History fiber 1 tablet PO DAILY 12/14/24 12/27/24 History fluticasone propionate 50 1 - 2 spray intranasal BID PRN 12/14/24 12/27/24 History mcg/actuation nasal nasal congestion spray,suspension (Flonase Allergy Relief) ibuprofen 200 mg tablet (Advil) 400 mg PO Q6H PRN pain 12/14/24 12/27/24 History loratadine 10 mg tablet (Claritin) 10 mg PO DAILY 12/14/24 12/27/24 History Allergies Allergy/AdvReac Type Severity Reaction Status Date / Time No Known Allergies Allergy Verified 12/27/24 06:58 Vital Signs Vital Signs - 24 hr 12/27/24 06:29 12/27/24 09:17 12/27/24 09:30 Temperature 97.9 F 98 F Pulse Rate 77 90 76 Respiratory Rate 18 16 15 Blood Pressure 128/86 150/98 H 155/55 H Pulse Oximetry 99 98 95 Oxygen Delivery Room Air Simple Face Mask Simple Face Mask Oxygen Flow Rate 8 8 12/27/24 09:45 12/27/24 10:00 12/27/24 10:15 Temperature Pulse Rate 78 62 73 Respiratory Rate 11 L 11 L 13 Blood Pressure 148/71 H 128/78 140/71 Pulse Oximetry 93 94 95 Oxygen Delivery Nasal Cannula Nasal Cannula Nasal Cannula Oxygen Flow Rate 2 2 2 12/27/24 10:30 12/27/24 10:45 12/27/24 11:20 Temperature 97.0 F L Pulse Rate 67 66 64 Respiratory Rate 14 14 18 Blood Pressure 132/69 138/66 136/67 Pulse Oximetry 93 94 97 Oxygen Delivery Nasal Cannula Nasal Cannula Oxygen Flow Rate 2 2 12/27/24 11:35 12/27/24 12:35 Temperature 96.8 F L Pulse Rate 60 65 Respiratory Rate 18 18 Blood Pressure 127/61 112/65 Pulse Oximetry 95 97 Oxygen Delivery Oxygen Flow Rate Exam Narrative: General: well appearing, appears stated age. HEENT: normocephalic, atraumatic. Mucous membranes moist. EOMI, PERRLA, bilateral sclera anicteric, no conjunctival injection. Neck supple without JVD, lymphadenopathy, or bruit. Respiratory: clear to ascultation bilaterally. No rales/rhonic/wheezes. Cardiovascular: Regular rate and rhythm, normal S1-S2 upon ascultation. No murmurs, rubs, or clicks. PMI is nondisplaced, capillary refill less than 3 second. Abdomen: Soft, round, no pulsatile masses, nondistended and nontender. No rebound, no guarding. No CVA tenderness, no hepatosplenomegaly. Bowel sounds present to all four quadrants. No high pitch or tinkling sounds, resonant to percussion. Extremities: No cyanosis, clubbing, or edema present. Pulses are palpable 2/2. Right lower extremity with surgical dressing clean dry intact Neuro: Alert and orientated x 4. PERRLA. Cranial nerves 2-12 intact without focal deficit. Skin: Warm, dry, and intact, without rash, erythema, or lesion. Psych: pleasant, cooperative, normal speech, normal affect, no hallucinations, no dysarthia Quality VTE Prophylaxis VTE prophylaxis: mechanical ordered and pharmacologic ordered Hospitalist MIPS Advance Care Plan I have confirmed that the patient's Advanced Care Plan is present, code status is documented, or surrogate decision maker is listed in patient medical record.: Yes Medication Reconciliation I have utilized all available resources to obtain, update and review the patients current medications (includes all prescriptions, OTC, herbals, cannabis, and nutritional supplements).: Yes
[2024-12-27] MEDS: CELECOXIB 200 MG CAPSULE PO (18:11)
[2024-12-27] MEDS: LORATADINE 10 MG TABLET PO (18:12)
[2024-12-27] MEDS: RIVAROXABAN 10 MG TABLET PO (18:15)
[2024-12-27] MEDS: FAMOTIDINE 10 MG TABLET PO (23:44)
[2024-12-28 04:35] VITALS: BP 100/46; PULSE 64; RESP 13; TEMP 36.2; O2SAT 92
[2024-12-28 06:02] LABS: Basophils Percent Auto 0.4 % (0.2-1.2); Eosinophils Percent Auto 0.2 % (0-4.4); Hematocrit 34.5 % (37.0-47.0); Hemoglobin 10.8 g/dL (12.0-15.0); Immature Granulocyte Absolute 0.08 K/mm3 (0.00-0.031); Immature Granulocyte Percent A 0.8 % (0-0.5); Lymphocytes Absolute Auto 1.84 K/mm3 (0.9-3.2); Lymphocytes Percent Auto 18.8 % (18.3-44.2); Mean Corpuscular HGB Conc 31.3 g/dl (32-36); Mean Corpuscular Hemoglobin 27.3 pg (26-34); Mean Corpuscular Volume 87.1 fl (80-100); Mean Platelet Volume 10.2 fl (7.4-10.4); Monocytes Absolute Auto 1.2 K/mm3 (0.1-0.6); Monocytes Percent Auto 12.3 % (2.6-8.5); Neutrophils Absolute Auto 6.6 K/mm3 (1.3-6.7); Neutrophils Percent Auto 67.5 % (45.5-73.1); Platelet Count Result 235 k/mm3 (150-375); Red Blood Count 3.96 M/mm3 (4.2-5.4); Red Cell Distribution Width 13.9 % (11.5-14.5); White Blood Count 9.8 K/mm3 (4.5-10.0)
[2024-12-28 06:12] LABS: Anion Gap 8 mmol/L (4-12); Blood Urea Nitrogen 17 mg/dL (7-17); Calcium 8.6 mg/dL (8.4-10.2); Carbon Dioxide 25 mmol/L (22-30); Chloride 104 mmol/L (98-107); Estimated CRCL calculation 42 ml/min; Estimated Glomerular Filt Rate 49; Glucose 104 mg/dL (65-110); Potassium 4.6 mmol/L (3.4-5.0); Sodium 137 mmol/L (137-145)
[2024-12-28] MEDS: ceFAZolin 2 GM/D5W 50 ML 2 GM/50 ML BAG IVPB (06:12)
--- NOTE | 2024-12-28 06:51 | PM.PNORT ---
Progress Note: A&P Assessment and Plan (1) History of knee replacement procedure of right knee: Code(s): Z96.651 - Presence of right artificial knee joint Status: Acute Assessment and Plan: Patient underwent total knee arthroplasty right knee for osteoarthritis. She has had a typical postoperative course can be dismissed home at this time. Dismissed medication [place], Xarelto, and doxycycline. She has any changes or problems she will call discussed. Follow-up in 2 weeks for sutures out Subjective Subjective Date/Time Seen: 12/28/24 06:51 Post Op day: 1 Principal diagnosis: S/P Right TKA Review of Systems Musculoskeletal: Musculoskeletal: Reports arthralgias, Reports joint swelling and Reports stiffness Neurologic: Reports abnormal gait Exam Narrative: Wiggles toes. Walks with a walker. NVI. Objective Data Vital Signs Vital Signs: Vital Signs - 24 hr 12/27/24 09:17 12/27/24 09:30 12/27/24 09:45 Temperature 98 F Pulse Rate 90 76 78 Respiratory Rate 16 15 11 L Blood Pressure 150/98 H 155/55 H 148/71 H Pulse Oximetry 98 95 93 Oxygen Delivery Simple Face Mask Simple Face Mask Nasal Cannula Oxygen Flow Rate 8 8 2 12/27/24 10:00 12/27/24 10:15 12/27/24 10:30 Temperature Pulse Rate 62 73 67 Respiratory Rate 11 L 13 14 Blood Pressure 128/78 140/71 132/69 Pulse Oximetry 94 95 93 Oxygen Delivery Nasal Cannula Nasal Cannula Nasal Cannula Oxygen Flow Rate 2 2 2 12/27/24 10:45 12/27/24 11:20 12/27/24 11:35 Temperature 97.0 F L 96.8 F L Pulse Rate 66 64 60 Respiratory Rate 14 18 18 Blood Pressure 138/66 136/67 127/61 Pulse Oximetry 94 97 95 Oxygen Delivery Nasal Cannula Oxygen Flow Rate 2 12/27/24 12:35 12/27/24 15:05 12/27/24 16:35 Temperature Pulse Rate 65 60 Respiratory Rate 18 18 Blood Pressure 112/65 127/61 Pulse Oximetry 97 97 Oxygen Delivery Room Air Oxygen Flow Rate 12/27/24 20:00 12/27/24 20:35 12/27/24 23:54 Temperature 97.6 F 97.5 F L Pulse Rate 60 64 Respiratory Rate 14 12 Blood Pressure 114/60 153/31 H Pulse Oximetry 91 95 Oxygen Delivery Room Air Oxygen Flow Rate 12/28/24 04:35 Temperature 97.2 F L Pulse Rate 64 Respiratory Rate 13 Blood Pressure 100/46 L Pulse Oximetry 92 Oxygen Delivery Oxygen Flow Rate Intake/Output Intake/Output: Intake & Output 12/25/24 12/26/24 12/27/24 12/28/24 23:59 23:59 23:59 23:59 Intake Total 990 Balance 990 Meds/Results Medications: Active Medications Generic Name Dose Route Start Last Admin Trade Name Freq PRN Reason Stop Dose Admin Hydrocodone Bitart/Acetaminophen 1 tab 12/27/24 10:50 Hydrocodone/Acetaminophen (*Crx) 5-325 Mg Tablet PO Q4H PRN Pain Rated 4-6 Hydrocodone Bitart/Acetaminophen 1 tab 12/27/24 10:50 12/27/24 19:54 Hydrocodone/Acetaminophen (*Crx) 7.5-325 Mg Tablet PO 1 tab Q4H PRN Administration Pain Rated 7-10 Celecoxib 200 mg 12/27/24 17:00 12/27/24 18:11 Celecoxib 200 Mg Capsule PO 200 mg BIDWM JASON Administration Diphenhydramine HCl 25 mg 12/27/24 10:50 Diphenhydramine Hcl Inj 50 Mg/Ml Vial IV PUSH Q6H PRN Itching Famotidine 10 mg 12/27/24 19:19 12/27/24 23:44 Famotidine 10 Mg Tablet PO 10 mg DAILY PRN Administration indigestion Hydromorphone HCl 1 mg 12/27/24 10:50 Hydromorphone Hcl Inj (*Crx) 1 Mg/Ml Syr IV PUSH Q2H PRN Breakthrough Pain Rated 7-10 or NPO Hydromorphone HCl 0.5 mg 12/27/24 10:50 Hydromorphone Hcl Inj (*Crx) 1 Mg/Ml Syr IV PUSH Q2H PRN Breakthrough Pain Rated 4-6 or NPO Hydroxyzine HCl 25 mg 12/27/24 15:42 Hydroxyzine Hcl 25 Mg Tablet PO QAM PRN anxiety Hydroxyzine HCl 50 mg 12/27/24 15:47 Hydroxyzine Hcl 25 Mg Tablet PO HS PRN anxiety Cefazolin Sodium 2 gm in 50 mls @ 100 mls/hr 12/27/24 15:00 12/28/24 06:12 Ancef 2 Gm/D5w 50 Ml IVPB 12/28/24 07:29 100 mls/hr Q8H JASON Administration Ibuprofen 800 mg in 200 mls @ 400 mls/hr 12/27/24 10:50 Caldolor 800 Mg/200 Ml IVPB Q6H PRN Breakthrough Pain Rated 1-3 or NPO Lisinopril 20 mg 12/28/24 21:00 Lisinopril 20 Mg Tablet PO HS JASON Loratadine 10 mg 12/27/24 15:50 12/27/24 18:12 Loratadine 10 Mg Tablet PO 10 mg DAILY JASON Administration Naloxone HCl 0.1 mg 12/27/24 10:50 Naloxone Hcl 0.4 Mg/Ml Vial IV PUSH Q2M PRN Opiate Reversal Ondansetron HCl 4 mg 12/27/24 10:50 Ondansetron Inj 4 Mg/2 Ml Vial IV PUSH Q4H PRN Nausea And Vomiting Polyethylene Glycol 17 gm 12/27/24 12:00 12/27/24 13:32 Polyethylene Glycol 3350 17 Gm Powd.Pack PO 17 gm QAM JASON Administration Pravastatin Sodium 20 mg 12/28/24 09:00 Pravastatin Sodium 20 Mg Tablet PO DAILY JASON Rivaroxaban 10 mg 12/27/24 17:00 12/27/24 18:15 Rivaroxaban 10 Mg Tablet PO 01/07/25 17:01 10 mg DAILY@17 [facility] Administration Senna/Docusate Sodium 2 tab 12/27/24 12:00 12/27/24 18:11 Senna/Docusate Sodium Tablet PO Not Given BID [facility] Sertraline HCl 100 mg 12/28/24 09:00 Sertraline Hcl 50 Mg Tablet PO DAILY [facility] Tramadol HCl 50 mg 12/27/24 10:50 Tramadol Hcl (*Crx) 50 Mg Tablet PO Q4H PRN Pain Rated 1-3 Trazodone HCl 50 mg 12/27/24 15:42 Trazodone Hcl 50 Mg Tablet PO QHS PRN sleep Radiology Results: ITS Impressions Knee X-Ray 12/27/24 09:48 IMPRESSION: 1. Recent right total knee arthroplasty. Labs Labs: Laboratory Results - last 24 hr 12/28/24 05:40 WBC 9.8 RBC 3.96 L Hgb 10.8 L Hct 34.5 L MCV 87.1 MCH 27.3 MCHC 31.3 L RDW 13.9 Plt Count 235 MPV 10.2 Immature Gran % (Auto) 0.8 H Neut % (Auto) 67.5 Lymph % (Auto) 18.8 [place] % (Auto) 12.3 H Eos % (Auto) 0.2 Baso % (Auto) 0.4 Lymph # (Auto) 1.84 [place] # (Auto) 1.2 H Eos # (Auto) 0.0 Baso # (Auto) 0.0 Abs Immat Gran (auto) 0.08 H Absolute Neuts (auto) 6.6 Absolute Nucleated RBC 0.000 Nucleated RBC % 0.0 Sodium 137 Potassium 4.6 Chloride 104 Carbon Dioxide 25 Anion Gap 8 BUN 17 Creatinine 1.11 H Estim Creat Clear Calc 42 Estimated GFR 49 L Glucose 104 Calcium 8.6
[2024-12-28 08:35] VITALS: BP 115/56; PULSE 56; RESP 16; TEMP 36.4; O2SAT 97
[2024-12-28] MEDS: HYDROcodone/acetaminophen (*CRX) 7.5-325 MG TABLET 1 TAB PO ×2 (08:50→12:12)
[2024-12-28] MEDS: PRAVASTATIN SODIUM 20 MG TABLET PO (08:51)
[2024-12-28] MEDS: CELECOXIB 200 MG CAPSULE PO (08:51)
[2024-12-28] MEDS: SERTRALINE HCL 50 MG TABLET 100 MG PO (08:51)
[2024-12-28] MEDS: LORATADINE 10 MG TABLET PO (08:51)
== END 2024-12-28 13:15 | disposition home or self-care (01) ==
LOC: ANHSURGERY 06:17 → ANH3MEDSUR 13:21
PROVIDERS: Visit Provider Orthopaedic Surgery
PROC: (CPT 27447; principal; 2024-12-27 07:30)
DX: M17.11 Unilateral primary osteoarthritis, right knee (principal); G89.18 Other acute postprocedural pain; F41.9 Anxiety disorder, unspecified; I10 Essential (primary) hypertension; E78.5 Hyperlipidemia, unspecified; F17.290 Nicotine dependence, other tobacco product, uncomplicated
CPT/HCPCS: 27447; 64447; 36415; 73560; 80048; 85025; 97110; 97116; 97161; 97165; 97530; 97535; A9270; C1713; C1776; J0171; J0690; J1100; J1171; J1596; J1885; J2003; J2250; J2270; J2371; J2405; J2704; J2795; J3010; J3370; J7120